=== PATIENT | female | born 1965 | race Caucasian/White ===

== ENCOUNTER 2019-08-28 13:27 | Outpatient (CLI) | payer OTHER, SELFPAY ==
--- NOTE | ~2019-08-28 | XR_ITS ---
EXAMINATION: XR abdomen/kub 1V EXAM DATE: 08/28/2019 13:48 INDICATION: Kidney stones. TECHNIQUE: Frontal projection of the upper abdomen, frontal projection lower abdomen/pelvis for inter pretation. Comparison is made to prior examination from 10/25/2017. FINDINGS: No suspicious soft tissue calcifications identified. There are cholecystectomy clips. Cho lecystectomy clips. There is also a clip in the right-sided pelvis. Expected amount of colonic stool, nonobstructive bowel gas pattern. There is no organomegaly. IMPRESSION: No suspicious calcifications identified. Reviewed, dictated and finalized at location A.
== END 2019-08-28 13:28 | disposition home or self-care (01) ==
PROVIDERS: PCP Family Medicine; Visit Provider Urology
DX: Z87.442 Personal history of urinary calculi (principal)
CPT/HCPCS: 74018

== ENCOUNTER → 2020-10-07 13:25 | Outpatient (CLI) | payer OTHER, SELFPAY ==
--- NOTE | ~2020-10-07 | MM_ITS ---
EXAMINATION: MM screening [place] BI w tigist HISTORY: Screening mammogram TECHNIQUE: Craniocaudal and mediolateral oblique 3-D tomosynthesis images were obtained and synthetic 2-D images were generated. CAD analysis was submitted and interpreted. COMPARISON: 02/26/2019 diagnostic right mammogram and limited right breast ultrasound 02/10/2019, 12/06/2017 bilateral digital screening mammogram examinations BREAST PARENCHYMAL COMPOSITION: There are scattered areas of fibroglandular density... FINDINGS: There is no evidence of suspicious mass, calcification, or architectural distortion to sugg est malignancy in either breast. There has been no suspicious interval change. IMPRESSION: 1. No mammographic evidence of malignancy. 2. Recommend routine screening mammography in one year. BI-RADS Category 1: Negative Reviewed, dictated and finalized at location A.
--- NOTE | ~2020-10-07 | DEXA_ITS ---
Bone Density Report Name: Hermelinda Britt Age: 55 Sex: Female Ethnicity: White Date of : 1965 Indication: postmenopausal; screening for osteoporosis; hysterectomy; Referring Provider: Miryam Asencio Study: Bone densitometry was performed. Exam Date: October 07, 2020 Accession number: [id number] Bone Density: Region BMD T-score Z-score Classification AP Spine (L1-L4) 0.844 -1.8 -0.8 Osteopenia Femoral Neck (Left) 0.709 -1.3 -0.2 Osteopenia Total Hip (Left) 0.893 -0.4 0.3 Normal Femoral Neck (Right) 0.718 -1.2 -0.2 Osteopenia Total Hip (Right) 0.901 -0.3 0.3 Normal Total Hip Mean 0.897 -0.4 0.3 Normal World Health Organization criteria for BMD impression classify patients as: Normal (T-score at or above -1.0), Osteopenia (T-score between -1.0 and -2.5), or Osteoporosis (T-score at or below -2.5). 10-year Fracture Risk(1): Major Osteoporotic Fracture 5.4% Hip Fracture 0.3% Reported Risk Factors: [place] (), Neck BMD=0.718, BMI=38.0 (1) FRAX(R) Version 3.08. Fracture probability calculated for an untreated patient. Fracture probability may be lower if the patient has received treatment. Clinical Information Provided by Patient: Has used the following medications: Vitamin D, MTV, Levothyroxine Has the following medical conditions: Hysterectomy Patient maximum height was 58.0 Menopause Age: 48 No regular weight bearing exercise Does not regularly consume dairy products Drinks caffeinated beverages Onset of menses at age 13 Number of children 2 Missed period for more than 6 months in a row Impression: The patient has low bone mass, based on the Total Spine T-score. The patient has an estimated ten-year risk of hip fracture of 0.3% and an estimated ten-year risk of major fracture of 5.4%, based on the WHO FRAX algorithm. Discussion: BONE DENSITY IS LOW AT ONE OR MORE SKELETAL SITES. This patient's lowest T-score is low at one or more skeletal sites. It meets the World Health Organization's (WHO) criteria for ?low bone mass? (T-score between -1.0 and -2.5). The patient's 10-year risk of fracture as calculated by FRAX is less than the threshold where pharmacological therapy is recommended by the National Osteoporosis Foundation (NOF). However, all treatment decisions require clinical judgment and consideration of individual patient factors, including patient preferences, comorbidities, previous drug use, risk factors not captured in the FRAX model (e.g., frailty, falls, vitamin D deficiency, increased bone turnover, interval significant decline in bone density) and possible under or overestimation of fracture risk by FRAX. The patient should follow a healthful lifestyle (good nutrition with adequate calcium and vitamin D, and appropriate weight-bearing exercise). Follow-Up: Consider re
== END ==
PROVIDERS: PCP Family Medicine; Visit Provider Family Medicine
DX: Z12.31 Encounter for screening mammogram for malignant neoplasm of breast (principal); Z78.0 Asymptomatic menopausal state; M85.88 Other specified disorders of bone density and structure, other site; M85.852 Other specified disorders of bone density and structure, left thigh; M85.851 Other specified disorders of bone density and structure, right thigh
CPT/HCPCS: 77063; 77067; 77080

== ENCOUNTER 2020-10-28 13:09 | Outpatient (CLI) | payer OTHER, SELFPAY ==
--- NOTE | ~2020-10-28 | XR_ITS ---
EXAMINATION: XR abdomen/kub 1V EXAM DATE: 10/28/2020 13:29 INDICATION: History kidney stones follow-up. TECHNIQUE: Frontal projection of the upper abdomen, frontal projection lower abdomen/pelvis for inter pretation. Comparison is made to prior examination from 08/28/2019. FINDINGS: Bowel gas is obscuring the renal contours. No suspicious soft tissue calcifications identi fied. There is moderate amount of colonic stool and gas. No small bowel obstruction. There are no o sseous abnormalities identified. Cholecystectomy clips. IMPRESSION: Unremarkable XR abdomen/kub 1V exam. Reviewed, dictated and finalized at location A.
== END 2020-10-28 13:10 | disposition home or self-care (01) ==
LOC: ANHIMG 13:13
PROVIDERS: PCP Family Medicine; Visit Provider Urology
DX: Z87.442 Personal history of urinary calculi (principal)
CPT/HCPCS: 74018

== ENCOUNTER 2021-06-24 08:31 | Emergency (ER) | payer OTHER, SELFPAY ==
[2021-06-24 08:41] VITALS: BP 135/77; PULSE 56; RESP 14; TEMP 36.2; O2SAT 100
--- NOTE | 2021-06-24 09:47 | ED.URI ---
HPI - URI/Sore Throat General Chief Complaint: Upper Respiratory Infection Stated Complaint: Sinus Pain Time Seen by Provider: 06/24/21 09:47 Source: patient and RN notes reviewed Mode of arrival: ambulatory Limitations: no limitations History of Present Illness HPI Narrative: 56-year-old female presented for complaint of sinus pressure, congestion, cough and for over 10 days. Denies malaise, body aches, fever or chills, chest pain, shortness of breath, wheezing. She is fully vaccinated and boosted for Covid and flu. She has taken DayQuil, NyQuil, Mucinex for symptoms without relief. Granddtr with runny nose. MD elicited complaint: cough Related Data Home Medications Medication Instructions Recorded Confirmed multivitamin 1 tablet PO DAILY 10/01/19 06/24/21 oxybutynin chloride 10 mg 10 mg PO BID tablet 10/01/19 06/24/21 tablet,extended release 24 hr Allergies Allergy/AdvReac Type Severity Reaction Status Date / Time No Known Allergies Allergy Verified 06/24/21 09:24 Review of Systems Review of Systems: CONSTITUTIONAL: Denies malaise, chills, sweats, fever EYES: Denies visual changes, redness, or discharge ENT: Endorses sinus pain,rhinorrhea, congestion, Denies otalgia, sore throat CARDIOVASCULAR: Denies chest pain, palpitations, edema RESPIRATORY: Reports cough, post nasal drainage. Denies dyspnea GASTROINTESTINAL: Denies abdominal pain, nausea, vomiting, diarrhea SKIN: Denies rash or itching MUSCULOSKELETAL: Denies myalgia NEUROLOGIC: Denies headache PMFSH Past Medical History Medical History History of hypertension Resolved after weight loss. History of kidney stones Hypothyroidism (acquired) Morbid obesity OAB (overactive bladder) Vitamin D deficiency Surgical History Surgical History History of cholecystectomy 03/2011 History of cystoscopy cystoscopy and left ureteroscopy - 04/03 History of gastric bypass 04/2017 History of hysterectomy 01/2014 Family History Family History Mother Patient's mother is , Onset Age: 34 Family history of malignant neoplasm of uterus Father COPD (chronic obstructive pulmonary disease) Social History Social History Smoking status: Never smoker Second hand tobacco smoke exposure: Yes Alcohol intake: never Substance use: never Substance use type: does not use Gender identity (if verbalized by the patient): Female Exam Narrative: GENERAL: Ill-appearing, nontoxic no acute distress. HEAD: Normocephalic EYES: PERRLA, conjunctivae clear ENT: Mucous membranes moist. TM pearly burton with dull light reflex bilaterally; no tragal tenderness. Oropharynx erythematous with PND, without lesions or exudate, no drooling, no hoarseness, no trismus, uvula midline. NECK: Supple. No lymphadenopathy CHEST: Clear to auscultation, breath sounds equal. No wheezing, rhonchi, rales, or stridor. No respiratory distress, speaks in full sentences. HEART: Regular rate and rhythm. No murmur heard. SKIN: Warm, dry, no rash. NEURO: Alert and oriented x3. PSYCH: Normal mood and affect Course Course Emergency Course: Patient is aware of diagnosis, understands and agrees to treatment plan. Anticipatory guidance given. Patient agrees to follow-up as directed and is aware of reasons to seek care at the emergency department. Portions of this record may have been created with voice recognition software Level of Care: Express Care Visit Vital Signs Vital signs: Vital Signs Temperature 97.2 F L 06/24/21 08:41 Pulse Rate 56 L 06/24/21 08:41 Respiratory Rate 14 06/24/21 08:41 Blood Pressure 135/77 06/24/21 08:41 Pulse Oximetry 100 06/24/21 08:41 Temperature 97.2 F L 06/24/21 08:41 Pulse Rate 56 L 06/24/21 08:41
== END 2021-06-24 10:00 | disposition home or self-care (01) ==
PROVIDERS: Emergency Provider Nurse Practitioner Family; PCP Family Medicine
DX: J01.90 Acute sinusitis, unspecified (principal); E03.9 Hypothyroidism, unspecified; E66.01 Morbid (severe) obesity due to excess calories; Z68.36 Body mass index [BMI] 36.0-36.9, adult
CPT/HCPCS: 99213; G0463

== ENCOUNTER 2021-10-20 13:14 | Outpatient (CLI) | payer OTHER, SELFPAY ==
--- NOTE | ~2021-10-20 | XR_ITS ---
XR abdomen/kub 1V DATE: 10/20/2021 13:36 INDICATION: History of kidney stones TECHNIQUE: AP projection, 2 views COMPARISON: 10/28/2020 KUB FINDINGS: Status post cholecystectomy. No obvious urinary tract calcifications are noted. Noncontrast CT abdomen pelvis would be more sensit manolo for detection of renal calculi. No evidence of bowel obstruction. Included skeletal structures appear unremarkable. IMPRESSION: Nonspecific abdomen Status post cholecystectomy Reviewed, dictated and finalized at Location A. Reviewed, dictated and finalized at location A.
== END 2021-10-20 13:15 | disposition home or self-care (01) ==
PROVIDERS: PCP Family Medicine; Visit Provider Urology
DX: Z87.442 Personal history of urinary calculi (principal); Z90.49 Acquired absence of other specified parts of digestive tract
CPT/HCPCS: 74018

== ENCOUNTER 2022-04-02 01:57 | Day surgery (SDC) | payer OTHER, SELFPAY ==
[2022-03-24 14:58] VITALS: BMI 38.2
[2022-04-02 13:09] VITALS: BP 147/98; PULSE 59; RESP 18; TEMP 36.3; O2SAT 99
--- NOTE | 2022-04-02 13:18 | PM.HPGS ---
History of Present Illness History of Present Illness Consent: Risks, benefits, and alternatives have been discussed and questions answered. Patient agrees to proceed with procedure. Chief complaint: neoplasm screening Narrative: Hermelinda Britt is a 57 year old female here for screening colonoscopy, last one 2011 Review of Systems Constitutional: Constitutional: Denies headache(s) and Denies weakness Eyes: Eyes: Denies blurry vision ENT: Reports Normal hearing present, Denies headache(s) and Denies neck pain Cardiovascular: Cardiovascular: Denies chest pain and Denies dyspnea Respiratory: Respiratory: Denies dyspnea Gastrointestinal: Gastrointestinal: Reports no additional gastrointestinal complaints Genitourinary: Genitourinary: Denies dysuria Musculoskeletal: Musculoskeletal: Denies neck pain Integumentary/Breasts: Skin/Breast: Denies dry skin Neurologic: Reports Normal hearing present, Denies headache(s) and Denies weakness Psychiatric: Psychiatric: Denies anxiety Endocrine: Endocrine: Denies change in body appearance Hematologic/Lymphatic: Hematologic/Lymphatic: Denies easy bleeding Allergic/Immunologic: Allergic/Immunologic: Denies urticaria PMFSH Past Medical History Medical History (Updated 04/02/22 @ 13:18 by Al Mahmood MD) Colon cancer screening History of hypertension Resolved after weight loss. History of kidney stones Hypothyroidism (acquired) Morbid obesity OAB (overactive bladder) Vitamin D deficiency Surgical History Surgical History History of cholecystectomy 03/2011 History of cystoscopy cystoscopy and left ureteroscopy - 04/03 History of gastric bypass 04/2017 History of hysterectomy 01/2014 Family History Family History Mother Patient's mother is , Onset Age: 34 Family history of malignant neoplasm of uterus Father COPD (chronic obstructive pulmonary disease) Social History Social History Smoking status: Never smoker Second hand tobacco smoke exposure: Yes Alcohol intake: never Substance use: never Substance use type: does not use Living arrangements: with family Gender identity (if verbalized by the patient): Female Spiritual care concerns: No Meds Home Medications and Allergies Home Medications Medication Instructions Recorded Confirmed Type multivitamin 1 tablet PO DAILY 10/01/19 04/02/22 History oxybutynin chloride 10 mg 10 mg PO BID 10/01/19 04/02/22 History tablet,extended release 24 hr levothyroxine 112 mcg tablet 112 mcg PO DAILY #90 tabs 12/28/21 04/02/22 Rx cholecalciferol (vitamin D3) 1,250 1,250 mcg PO WEEKLY #12 tabs 03/09/22 04/02/22 Rx mcg (50,000 unit) tablet Allergies Allergy/AdvReac Type Severity Reaction Status Date / Time No Known Allergies Allergy Verified 04/02/22 13:08 Vital Signs Vital Signs - 24 hr 04/02/22 13:09 Temperature 97.3 F L Pulse Rate 59 L Respiratory Rate 18 Blood Pressure 147/98 H Pulse Oximetry 99 Oxygen Delivery Room Air Exam Const: General: comfortable and no acute distress HENMT: Face/Nose/Sinus: Normal nares present Eyes: General: appearance normal, both eyes and all related structures Neck: Neck: no JVD Resp: Auscultation: clear to auscultation bilaterally Cardio: Rate: regular rate Rhythm: regular rhythm GI: Inspection: non-distended GI Palp: Yes Soft to palpation Skin: General skin exam: normal color Neuro: General: gait normal Speech: normal speech Extrem: General: normal to inspection Psych: Mental Status: mental status grossly normal Assessment and Plan Assessment and plan (1) Colon cancer screening: Code(s): Z12.11 - Encounter for screening for malignant neoplasm of colon Status: Acute Assessment and Plan: co
[2022-04-02] MEDS: LACTATED RINGERS 1,000 ML 150 ML IV CONT (13:20)
--- NOTE | 2022-04-02 13:24 | WPDANESEPPF ---
Anes - Initial Pre Proc Eval Procedure: Operation Date: 04/02/22 14:30 Proposed Procedures p Screening Colonoscopy - Al Mahmood MD Date/Time: 04/02/22 13:24 Surgeon: lA Mahmood MD Pre Op Diagnosis: neoplasm screening Patient Data Age: 57 Gender: F Height: 1.5 m Weight: 88.3 kg Last Vital Signs Temp 97.3 F L 04/02/22 13:09 Pulse 59 L 04/02/22 13:09 Resp 18 04/02/22 13:09 BP 147/98 H 04/02/22 13:09 Pulse Ox 99 04/02/22 13:09 O2 Del Method Room Air 04/02/22 13:09 Allergies Allergy/AdvReac Type Severity Reaction Status Date / Time No Known Allergies Allergy Verified 04/02/22 13:08 Home Medications Medication Instructions Recorded Confirmed Type multivitamin 1 tablet PO DAILY 10/01/19 04/02/22 History oxybutynin chloride 10 mg 10 mg PO BID 10/01/19 04/02/22 History tablet,extended release 24 hr levothyroxine 112 mcg tablet 112 mcg PO DAILY #90 tabs 12/28/21 04/02/22 Rx cholecalciferol (vitamin D3) 1,250 1,250 mcg PO WEEKLY #12 tabs 03/09/22 04/02/22 Rx mcg (50,000 unit) tablet Patient hx anesthesia problems: none Family hx anesthesia problems: none Results Review: All pre-operative results and documents have been reviewed as part of the pre-operative evaluation. [facility] Past Medical History Medical History (Updated 04/02/22 @ 13:18 by Al Mahmood MD) Colon cancer screening History of hypertension Resolved after weight loss. History of kidney stones Hypothyroidism (acquired) Morbid obesity OAB (overactive bladder) Vitamin D deficiency Surgical History Surgical History History of cholecystectomy 03/2011 History of cystoscopy cystoscopy and left ureteroscopy - 04/03 History of gastric bypass 04/2017 History of hysterectomy 01/2014 Family History Family History Mother Patient's mother is , Onset Age: 34 Family history of malignant neoplasm of uterus Father COPD (chronic obstructive pulmonary disease) Social History Social History Smoking status: Never smoker Second hand tobacco smoke exposure: Yes Alcohol intake: never Substance use: never Substance use type: does not use Living arrangements: with family Gender identity (if verbalized by the patient): Female Spiritual care concerns: No Anes - Eval Final PreProcedure Day of Procedure 04/02/22 13:24 Patient weight: morbidly obese Heart: regular rate and rhythm Lungs: clear to auscultation Airway: Mallampati scale class II Neurological: alert and oriented Last oral intake: >/= 8 hours ASA classification: III Emergent: no Anesthetic plan: proceed Anesthesia type and monitoring: general GIVS and standard monitoring Results Review: All pre-operative results and documents have been reviewed as part of the pre-operative evaluation. Informed Consent: The patient's anesthetic plan and its attendant risks and benefits were discussed with the patient/family/POA. Questions were solicited and answers provided to the satisfaction of the patient/family/POA.
[2022-04-02 13:48] VITALS: BP 101/75; PULSE 68; RESP 20; O2SAT 95
[2022-04-02 13:58] VITALS: BP 100/73; PULSE 64; RESP 28; O2SAT 97
[2022-04-02 14:08] VITALS: BP 107/78; PULSE 60; RESP 17; O2SAT 100
== END 2022-04-02 14:20 | disposition home or self-care (01) ==
PROVIDERS: PCP Family Medicine; Visit Provider Internal Medicine Gastroenterology
PROC: 0DJD8ZZ Inspection of Lower Intestinal Tract, Via Natural or Artificial Opening Endoscopic (ICD-10-PCS; CPT 45378; principal; 2022-04-02 14:30)
DX: Z12.11 Encounter for screening for malignant neoplasm of colon (principal); K57.30 Diverticulosis of large intestine without perforation or abscess without bleeding; E03.9 Hypothyroidism, unspecified; N32.81 Overactive bladder; E55.9 Vitamin D deficiency, unspecified; E66.01 Morbid (severe) obesity due to excess calories; Z68.39 Body mass index [BMI] 39.0-39.9, adult; Z98.84 Bariatric surgery status
CPT/HCPCS: 45378; J2704; J7120

== ENCOUNTER 2022-06-03 15:00 | Emergency (ER) | payer OTHER, SELFPAY ==
[2022-06-03 15:12] VITALS: BP 136/92; PULSE 61; RESP 20; TEMP 36.2; O2SAT 100
--- NOTE | 2022-06-03 15:45 | ED.BACK ---
HPI - Back Pain/Injury General Chief Complaint: Back Pain/Injury Stated Complaint: Sever lower back pain Source: patient and RN notes reviewed History of Present Illness HPI Narrative: 57-year-old female presents urgent care with complaints bilateral lower back pain x2 weeks. Patient states over the course of the last week her pain has increased. Patient reports polyuria but states this could be a chronic condition. Denies any dysuria, back injury, fevers, chills, leg pain, numbness, or tingling. Patient denies any abdominal pain or vomiting. Patient has been taking Tylenol home with minimal relief. Some parts of this dictation were generated by voice recognition software and may contain typographical and/or grammatical inaccuracies. Related Data Home Medications Medication Instructions Recorded Confirmed multivitamin 1 tablet PO DAILY 10/01/19 04/02/22 oxybutynin chloride 10 mg 10 mg PO BID 10/01/19 04/02/22 tablet,extended release 24 hr Allergies Allergy/AdvReac Type Severity Reaction Status Date / Time No Known Allergies Allergy Verified 06/03/22 15:09 Review of Systems Review of Systems: CONSTITUTIONAL: Denies fever, chills, or sweats. EYES: Denies visual changes, redness, or discharge. ENT: Denies otalgia and sore throat CARDIOVASCULAR: Denies chest pain, palpitations, or edema. RESPIRATORY: Denies cough or dyspnea. GASTROINTESTINAL: Denies abdominal pain, nausea, vomiting, or diarrhea. GENITOURINARY: Denies dysuria or hematuria. SKIN: Denies rash or itching. MUSCULOSKELETAL: Reports back pain NEUROLOGIC: Denies headache, numbness, or weakness. [facility] Past Medical History Medical History (Updated 06/03/22 @ 15:46 by Marianela Blackwood, ELIAZAR) Colon cancer screening History of hypertension Resolved after weight loss. History of kidney stones Hypothyroidism (acquired) Morbid obesity OAB (overactive bladder) Vitamin D deficiency Surgical History Surgical History History of cholecystectomy 03/2011 History of cystoscopy cystoscopy and left ureteroscopy - 04/03 History of gastric bypass 04/2017 History of hysterectomy 01/2014 Family History Family History Mother Patient's mother is , Onset Age: 34 Family history of malignant neoplasm of uterus Father COPD (chronic obstructive pulmonary disease) Social History Social History Smoking status: Never smoker Second hand tobacco smoke exposure: Yes Alcohol intake: never Substance use: never Substance use type: does not use Living arrangements: with family Gender identity (if verbalized by the patient): Female Spiritual care concerns: No Comments At the time of my signature, I reviewed and agree with the nursing past medical, surgical, social, and family history. There is no relevant family history pertinent to the patient complaint. Exam Narrative: GENERAL APPEARANCE: The patient is a well-developed, well-nourished child who is awake, active. Interacts appropriately with surroundings and examiner, in no acute distress. SKIN: Skin is warm and dry without erythema, swelling or exudate. There is good turgor. No tenting. HEAD: Atraumatic. Normocephalic. No temporal or scalp tenderness. EYES: Moist and bright. Sclera and conjunctivae normal. No discharge. PERRLA. Extraocular motions intact. Gross visual acuity intact. EARS: Pinna is normal shape and contour. Clear external auditory canals. TM pearly darling with good cone of light, no erythema or suppuration. No gross hearing deficit. NOSE: pink, moist mucosa with good air movement. No rhinorrhea or nasal flaring. Septum midline. Mouth: moist mucous membranes. THROAT; posterior pharynx pink and moist without erythema, exudate, or ulceration. Uvula midline. Normal movement of soft palate. NECK: Supple a
== END 2022-06-03 15:54 | disposition home or self-care (01) ==
PROVIDERS: Emergency Provider Nurse Practitioner Family; PCP Family Medicine
DX: N39.0 Urinary tract infection, site not specified (principal); B96.1 Klebsiella pneumoniae [K. pneumoniae] as the cause of diseases classified elsewhere; E03.9 Hypothyroidism, unspecified; E66.01 Morbid (severe) obesity due to excess calories; Z68.38 Body mass index [BMI] 38.0-38.9, adult
CPT/HCPCS: 81003; 87077; 87086; 87186; 99213; G0463

== ENCOUNTER 2023-06-24 11:12 | Outpatient (CLI) | payer OTHER, SELFPAY ==
--- NOTE | ~2023-06-24 | MM_ITS ---
EXAMINATION: MM screening [place] BI w tigist HISTORY: Screening mammogram TECHNIQUE: Craniocaudal and mediolateral oblique 3-D tomosynthesis images were obtained and synthetic 2-D images were generated. CAD analysis was submitted and interpreted. COMPARISON: 10/07/2020 bilateral screening mammogram BREAST PARENCHYMAL COMPOSITION: There are scattered areas of fibroglandular density. FINDINGS: There is no evidence of suspicious mass, calcification, or architectural distortion to sugg est malignancy in either breast. There has been no suspicious interval change. IMPRESSION: 1. No mammographic evidence of malignancy. 2. Recommend routine screening mammography in one year. BI-RADS Category 1: Negative Reviewed, dictated and finalized at location A. 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
== END 2023-06-24 11:13 ==
PROVIDERS: PCP Nurse Practitioner Obstetrics & Gynecology; Visit Provider Nurse Practitioner Obstetrics & Gynecology
DX: Z12.31 Encounter for screening mammogram for malignant neoplasm of breast (principal)
CPT/HCPCS: 77063; 77067

== ENCOUNTER 2023-09-22 09:10 | Emergency (ER) | payer OTHER, SELFPAY ==
[2023-09-22 09:25] VITALS: BP 126/94; PULSE 84; RESP 20; TEMP 36.4; O2SAT 98
--- NOTE | 2023-09-22 10:06 | ED.FEMALEGU ---
HPI - Female Genitourinary General Chief complaint: Urogenital-Female Stated complaint: Poss Uti Source: patient and RN notes reviewed Mode of arrival: ambulatory Limitations: no limitations History of Present Illness HPI Narrative: 58-year-old female presented for complaint of burning with urination, urgency and fever. Onset at noon yesterday. Denies hematuria, nausea, vomiting, abdominal pain, flank pain, constipation, diarrhea, fevers or chills. Reports history of renal stones. She takes oxybutynin and follows with Dr Montemayor. Related Data Home Medications Medication Instructions Recorded Confirmed cholecalciferol (vitamin D3) 1,250 1,250 mcg PO WEEKLY 09/22/23 09/22/23 mcg (50,000 unit) capsule levothyroxine 112 mcg tablet 112 mcg PO DAILY 09/22/23 09/22/23 oxybutynin chloride 10 mg 20 mg PO DAILY 09/22/23 09/22/23 tablet,extended release 24 hr phentermine 30 mg capsule 30 mg PO DAILY 09/22/23 09/22/23 Allergies Allergy/AdvReac Type Severity Reaction Status Date / Time No Known Allergies Allergy Verified 09/22/23 09:54 Review of Systems Review of Systems: CONSTITUTIONAL: Denies body aches, fever, chills, or sweats. CARDIOVASCULAR: Denies chest pain, palpitations, or edema. RESPIRATORY: Denies cough or dyspnea. GASTROINTESTINAL: Denies abdominal pain, nausea, vomiting, or diarrhea. GENITOURINARY: Reports dysuria, frequency, urgency, denies hematuria, flank pain SKIN: Denies rash, itching, or wounds. MUSCULOSKELETAL: Denies back pain or myalgia. PMFSH Comments At time of signature, I have reviewed and agree with nursing past medical, surgical, social and family history unless otherwise noted. Please see nursing chart for further information. There is no relevant family history pertinent to the presenting complaint Exam Narrative: GENERAL: Well-appearing and in no acute distress. ENT: Mucous membranes pink and moist. NECK: Normal AROM. Supple. CHEST: No respiratory distress. Clear to auscultation. HEART: Regular rate and rhythm. ABDOMEN: Soft, nontender, nondistended, normal active bowel sounds. No CVA tenderness MUSCULOSKELETAL: No bony tenderness. SKIN: Warm, dry, no rash. NEURO: No focal deficits. Alert and oriented x3. Gait steady. PSYCH: Normal affect. Course Course Emergency Course: Patient is aware of diagnosis, understands and agrees to treatment plan. Anticipatory guidance given. Patient agrees to follow-up as directed and is aware of reasons to seek care at the emergency department. Portions of this record may have been created with voice recognition software Level of Care: Express Care Visit Vital Signs Vital signs: Vital Signs Temperature 97.6 F 09/22/23 09:25 Pulse Rate 84 09/22/23 09:25 Respiratory Rate 20 09/22/23 09:25 Blood Pressure 126/94 H 09/22/23 09:25 Pulse Oximetry 98 09/22/23 09:25 Oxygen Delivery Room Air 09/22/23 09:25 Temperature 97.6 F 09/22/23 09:25 Pulse Rate 84 09/22/23 09:25 Respiratory Rate 20 09/22/23 09:25 Blood Pressure 126/94 H 09/22/23 09:25 Pulse Oximetry 98 09/22/23 09:25 Oxygen Delivery Room Air 09/22/23 09:25 Reviewed MDM - Female Genitourinary MDM Narrative Medical decision making narrative: Discussed physical exam findings and urine results. Advised supportive measures and signs/symptoms to go to the ER. Pt is appropriate for outpt treatment and f/u with urology Discharge Plan Discharge Clinical Impression: Urinary tract infection Patient Disposition: Home, Self-Care Condition: Stable Instructions: Antibiotic Form, Urinary Tract Infection in Women (ED) Additional Instructions: Take the antibiotic as prescribed The urine will be sent of for a culture to identify what type of bacteria is causing your infection. If the culture shows that the antibiotic will not get rid of your infection, you will be notified and a new antibiotic will be called in for you.
== END 2023-09-22 10:45 | disposition home or self-care (01) ==
PROVIDERS: Emergency Provider Nurse Practitioner Family; PCP Family Medicine
DX: N39.0 Urinary tract infection, site not specified (principal); B96.20 Unspecified Escherichia coli [E. coli] as the cause of diseases classified elsewhere; E03.9 Hypothyroidism, unspecified
CPT/HCPCS: 81003; 87077; 87086; 87088; 87186; 99213; G0463

== ENCOUNTER 2023-10-15 08:52 | Emergency (ER) | payer OTHER, SELFPAY ==
[2023-10-15] VITALS (10 sets, daily range): BP systolic 115–139; BP diastolic 88–92; PULSE 92–102; RESP 15–28; TEMP 37.4–38.8; O2SAT 96–100
--- NOTE | ~2023-10-15 | XR_ITS ---
EXAMINATION: XR chest 2V DATE: 10/15/2023 09:18 INDICATION: Chest pain and congestion. Nonproductive cough and fever. TECHNIQUE: PA and lateral views of the chest were obtained. COMPARISON: Chest radiograph dated 04/15/11 FINDINGS: A couple calcified nodule right middle lobe and additional small calcified nodule at the lateral left upper lung zone consistent with old granulomatous disease. Linear bands of discoid atelectasis/scarr ing in the right lower lobe and lingula. No other airspace opacities, pulmonary edema, pleural effusi on or pneumothorax. The cardiomediastinal silhouette is normal. Cholecystectomy clips in right upper quadrant. Mild thoracic spondylosis. IMPRESSION: 1. Mild discoid atelectasis at the bilateral lung bases. No other acute cardiopulmonary disease. Reviewed, dictated and finalized at location A. IMPRESSION: 1. Mild discoid atelectasis at the bilateral lung bases. No other acute cardiop ulmonary disease.
--- NOTE | 2023-10-15 08:55 | ECG_ITS ---
Test Date: 2023-10-15 08:59:19 Measurements Intervals [place] Rate: 94 P: 17 [place]: 113 QRS: -5 QRSD: 94 T: -9 QT: 317 QTc: 398 Interpretive Statements SINUS RHYTHM WITH SHORT [place] INTERVAL INCOMPLETE RIGHT BUNDLE BRANCH BLOCK [90+ ms QRS DURATION, TERMINAL R IN V1/V2, 40+ ms S IN I/aVL/V4/V5/V6] MODERATE ST DEPRESSION [0.05+ mV ST DEPRESSION] No previous ECG available for comparison Electronically Signed On 10-15-2023 11:29:43 CDT by Ken Leon M.D.
--- NOTE | 2023-10-15 09:03 | ED.CHESTPAIN ---
HPI - Chest Pain General Chief Complaint: Chest Pain Stated Complaint: chest pain, urinary symptoms Time Seen by Provider: 10/15/23 08:53 History of Present Illness HPI narrative: 58-year-old female presented to the emergency department for evaluation for 2 weeks of cough with some shortness of breath and a fever. Patient states she began having respiratory symptoms approximately 2 weeks ago. Patient also reports but 2 weeks ago she was treated for urinary tract infection but states she is still having some urinary symptoms. Patient lives at home with her Related Data Home Medications Medication Instructions Recorded Confirmed multivitamin 1 tablet PO DAILY 10/01/19 05/10/23 oxybutynin chloride 10 mg 10 mg PO BID 10/01/19 05/10/23 tablet,extended release 24 hr Allergies Allergy/AdvReac Type Severity Reaction Status Date / Time No Known Allergies Allergy Verified 10/15/23 09:00 Review of Systems Review of Systems: All systems reviewed & are unremarkable except as noted in HPI and below PMFSH Past Medical History Medical History Colon cancer screening History of hypertension Resolved after weight loss. History of kidney stones Hypothyroidism (acquired) Morbid obesity OAB (overactive bladder) Vitamin D deficiency Surgical History Surgical History History of cholecystectomy 03/2011 History of cystoscopy cystoscopy and left ureteroscopy - 04/03 History of gastric bypass 04/2017 History of hysterectomy 01/2014 Family History Family History Mother Patient's mother is , Onset Age: 34 Family history of malignant neoplasm of uterus Father COPD (chronic obstructive pulmonary disease) Social History Social History Social History: Caffeine- tea occasionally Smoking status: Never smoker Second hand tobacco smoke exposure: Yes Alcohol intake: never Substance use: never Substance use type: does not use Lack of Transportation: No Lack of Food: Never True Current Housing: I Have Housing Concerned About Future Housing: No Difficulty Paying Gas/Electric Bills: No Difficulty Paying for Meds: No Currently Unemployed: No Education: Associate Degree Difficulty w/ Childcare or Family Care: No Living arrangements: with family Occupation/Education: occupation Gender identity (if verbalized by the patient): Female Spiritual care concerns: No Agree to blood products: Yes Exam Narrative: APPEARANCE: Ill-appearing HEAD: normocephalic, atraumatic. EYES: PERRLA/EOMI, conjunctivae clear. NOSE: Normal no drainage EARS:TMS clear with good light reflex. THROAT: Pharynx clear, no exudate. NECK: Supple. No adenopathy, no masses. RESPIRATORY: Airway patent, respirations nonlabored. Clear to auscultation bilaterally, no rales, rhonchi, wheezing. CARDIOVASCULAR: Regular rate and rhythm without murmurs rubs or gallops. ABDOMINAL: Soft, nontender, nondistended, normal bowel sounds MUSCULOSKELETAL: Moves all extremities. Strength/ROM intact, No edema, No calf tenderness. NEURO: Alert. Cranial nerves II through XII intact. Grossly intact Course Vital Signs Vital signs: Vital Signs Temperature 101.8 F H 10/15/23 08:56 Pulse Rate 97 10/15/23 08:56 Respiratory Rate 18 10/15/23 08:56 Blood Pressure 134/92 H 10/15/23 08:56 Pulse Oximetry 100 10/15/23 08:56 Oxygen Delivery Room Air 10/15/23 08:56 Temperature 99.4 F 10/15/23 10:19 Pulse Rate 98 10/15/23 11:07 Respiratory Rate 20 10/15/23 11:07 Blood Pressure 115/88 10/15/23 11:07 Pulse Oximetry 97 10/15/23 11:07 Oxygen Delivery Room Air 10/15/23 08:56 MDM - Chest Pain MDM Narrative Medical decision making narrative: 58-year-old
[2023-10-15] MEDS: ASPIRIN 81 MG CHEWABLE TABLET 324 MG PO (09:05)
[2023-10-15 09:14] LABS: Basophils Percent Auto 0.3 % (0.2-1.2); Hematocrit 42.4 % (37.0-47.0); Hemoglobin 14.2 g/dL (12.0-15.0); Immature Granulocyte Absolute 0.03 K/mm3 (0.00-0.031); Immature Granulocyte Percent A 0.3 % (0-0.5); Lymphocytes Absolute Auto 0.81 K/mm3 (0.9-3.2); Lymphocytes Percent Auto 8.1 % (18.3-44.2); Mean Corpuscular HGB Conc 33.5 g/dl (32-36); Mean Corpuscular Hemoglobin 29.8 pg (26-34); Mean Corpuscular Volume 88.9 fl (80-100); Mean Platelet Volume 9.8 fl (7.4-10.4); Monocytes Absolute Auto 0.8 K/mm3 (0.1-0.6); Monocytes Percent Auto 7.8 % (2.6-8.5); Neutrophils Absolute Auto 8.3 K/mm3 (1.3-6.7); Neutrophils Percent Auto 83.5 % (45.5-73.1); Platelet Count Result 206 k/mm3 (150-375); Red Blood Count 4.77 M/mm3 (4.2-5.4); Red Cell Distribution Width 13.2 % (11.5-14.5); White Blood Count 9.9 K/mm3 (4.5-10.0)
[2023-10-15 09:24] LABS: Alanine Aminotransferase 16 U/L (6-35); Albumin Level 4.2 g/dL (3.5-5.1); Alkaline Phosphatase 93 U/L (38-126); Anion Gap 9 mmol/L (4-12); Aspartate Amino Transferase 34 U/L (14-36); Bilirubin,Total 1.1 mg/dL (0.2-1.3); Blood Urea Nitrogen 8 mg/dL (7-17); Calcium 8.8 mg/dL (8.4-10.2); Carbon Dioxide 23 mmol/L (22-30); Chloride 100 mmol/L (98-107); Estimated Glomerular Filt Rate > 60; Glucose 133 mg/dL (65-110); Lipase 33 U/L (23-300); Potassium 3.7 mmol/L (3.4-5.0); Sodium 132 mmol/L (137-145)
[2023-10-15 09:26] LABS: INR 1.3; Prothrombin Time 16.4 Seconds (11.1-14.7)
[2023-10-15 09:27] LABS: Partial Thromboplastin Time 32.2 Seconds (22.3-36.8)
[2023-10-15 09:35] LABS: Troponin I < 0.012 ng/mL (0.000-0.034)
[2023-10-15 10:19] LABS: Influenza A QL RT-PCR Negative (Negative); Influenza B QL RT-PCR Negative (Negative); RSV RNA, RT-PCR Negative (Negative); SARS-CoV-2 RNA PCR Negative (Negative)
[2023-10-15 10:45] LABS: Appearance Urine Cloudy (Clear); Bacteria Urine 4+ /hpf; Bilirubin Urine Negative (Negative); Blood Urine Trace (Negative); Color Urine Yellow (Yellow); Glucose Urine UA Negative (Negative); Ketones Urine 3+ mg/dL (Negative); Leukocyte Esterase Ur 2+ LEU/UL (Negative); Nitrate Urine Positive (Negative); Non Pathogenic Casts 0-2; Protein Urine 1+ mg/dL (Negative); Specific Grav Ur 1.014 (1.001-1.035); Squamous Epithelial Cell Urine None Seen /hpf (Few); WBC Urine >100 /hpf (0-3)
[2023-10-15 10:55] LABS: Add Urine Microscopic? YES
== END 2023-10-15 11:37 | disposition home or self-care (01) ==
PROVIDERS: Emergency Provider Emergency Medicine; PCP Family Medicine
DX: J18.9 Pneumonia, unspecified organism (principal); N39.0 Urinary tract infection, site not specified; Z20.822 Contact with and (suspected) exposure to COVID-19; Z87.442 Personal history of urinary calculi; E03.9 Hypothyroidism, unspecified
CPT/HCPCS: 36415; 71046; 80053; 81001; 83690; 84484; 85025; 85610; 85730; 87040; 87077; 87086; 87088; 87186; 87637; 93005; 96365; 99284; A9270; J0696

== ENCOUNTER 2023-10-16 15:59 | Inpatient (IN) | payer OTHER, SELFPAY ==
[2023-10-16] VITALS (10 sets, daily range): BP systolic 132–150; BP diastolic 76–92; PULSE 74–86; RESP 14–24; TEMP 36.7–38.1; O2SAT 95–100; BMI 38.1
--- NOTE | ~2023-10-16 | CT_ITS ---
CT chest abdomen pelvis wo con Ordering provider: Lenora Leger APRN History: . Cough, abdominal pain . Comparison: None. Technique: CT chest without IV contrast. CT abdomen and pelvis without oral and IV contrast. Radiatio n reduction technique utilized. DLP is 966.04 mGy. FINDINGS: The study is limited due to lack of IV contrast. CHEST: --VISUALIZED THORACIC INLET: Normal as visualized. --MEDIASTINUM: Aorta/coronary arteries: Mild atheromatous disease. Heart/other: The heart is not enlarged. Lymph nodes: No mediastinal or hilar adenopathy. Small prevascular lymph nodes are noted. Calcified subcarinal lymph node. --LUNGS: Atelectatic changes in the right lung base posteriorly. No pulmonary nodules or masses. No i nfiltrates or effusions. No pneumothorax. Multiple calcified granulomas.0 --MUSCULOSKELETAL: Soft tissues: The superficial soft tissues are normal. Bones: Age appropriate degenerative changes of the spine. ABDOMEN/PELVIS: --MUSCULOSKELETAL: Bones: Normal spine. Superficial soft tissues: The superficial soft tissues are normal. --UPPER ABDOMINAL ORGANS: Liver: Normal. Gallbladder: Status post cholecystectomy. Spleen: Normal. Stomach/duodenum: Sliding hiatus hernia. Postoperative changes in the stomach. Pancreas: Normal. Adrenals: Normal. Kidneys: Minimal fullness of the left renal pelvis. --PELVIC ORGANS: The bladder is normal. No bladder stones. --BOWEL AND MESENTERY: Colon: No evidence of diverticulitis. Narrowing of the sigmoid area seen most likely spastic. Follow- up advised. Normal appendix. Small Bowel: Normal. No obstruction. Peritoneum/mesentery: No free air or free fluid. No mesenteric lymphadenopathy. Small lymph nodes see n in the mesentery with the largest measuring 1 cm. --RETROPERITONEUM: Mild atheromatous disease of the abdominal aorta. No retroperitoneal lymphadenop athy. IMPRESSION: CHEST: 1. Minimal atelectatic changes in the right lung base posteriorly. No definite pneumonia or masses s een. ABDOMEN/PELVIS: 1. Slight dilatation of the left renal pelvis. No definite stones seen. 2. Focal area of narrowing in the sigmoid colon most likely spastic. Clinical evaluation and follow- up advised. 3. Small sliding hiatus hernia. Reviewed, dictated and finalized at location A. IMPRESSION: CHEST: 1. Minimal atelectatic changes in the right lung base posteriorly. No definite pneumonia or masses seen. ABDOMEN/PELVIS: 1. Slight dilatation of the left renal pelvis. No definite stones seen. 2. Focal area of narrowing in the sigmoid colon most likely spastic. Clinical evaluation and follow-up advised. 3. Small sliding hiatus hernia.
--- NOTE | ~2023-10-16 | XR_ITS ---
EXAMINATION: XR chest 1V portable DATE: 10/16/2023 16:41 INDICATION: Cough. Fever. TECHNIQUE: A single frontal view of the chest was obtained. COMPARISON: Chest 2 views 10/15/2023 FINDINGS: There is mild atelectasis in the lower lung zones. No pleural effusion or pneumothorax. The heart size is normal. Calcified right hilar lymph nodes are consistent with old granulomatous diseas e. IMPRESSION: 1. Mild atelectasis in the lower lung zones. Reviewed, dictated and finalized at location E.
--- NOTE | 2023-10-16 16:25 | ED.GENADULT ---
HPI - General Adult General Chief complaint: Recheck/Abnormal Lab/Rx Stated complaint: positive blood cx Time Seen by Provider: 10/16/23 16:01 History of Present Illness HPI narrative: 58-year-old female present to the emergency department for evaluation for positive blood cultures. Patient was evaluated in emergency department yesterday and diagnosed with pneumonia and urinary tract infection. Patient was started on cefpodoxime and azithromycin. Anticipated disposition for the patient yesterday was admission but patient ultimately stated that she felt improved and was requesting discharge home. Blood cultures had already been ordered and were not canceled. Patient got a call from her primary care physician today that both blood cultures had returned positive. Patient presents to the emergency department for evaluation. Patient states that she does still have some tiredness but does feel improved compared to yesterday. Related Data Home Medications Medication Instructions Recorded Confirmed oxybutynin chloride 10 mg 10 mg PO BID 10/01/19 10/16/23 tablet,extended release 24 hr Allergies Allergy/AdvReac Type Severity Reaction Status Date / Time No Known Allergies Allergy Verified 10/15/23 09:00 Review of Systems Review of Systems: All systems reviewed & are unremarkable except as noted in HPI and below PMFSH Past Medical History Medical History Colon cancer screening History of hypertension Resolved after weight loss. History of kidney stones Hypothyroidism (acquired) Morbid obesity OAB (overactive bladder) Vitamin D deficiency Surgical History Surgical History History of cholecystectomy 03/2011 History of cystoscopy cystoscopy and left ureteroscopy - 04/03 History of gastric bypass 04/2017 History of hysterectomy 01/2014 Family History Family History Mother Patient's mother is , Onset Age: 34 Family history of malignant neoplasm of uterus Father COPD (chronic obstructive pulmonary disease) Social History Social History Social History: Caffeine- tea occasionally Smoking status: Never smoker Second hand tobacco smoke exposure: Yes Alcohol intake: never Substance use: never Substance use type: does not use Do You Feel Safe in your Home?: Yes Lack of Transportation: No Lack of Food: Never True Current Housing: I Have Housing Concerned About Future Housing: No Difficulty Paying Gas/Electric Bills: No Difficulty Paying for Meds: No Currently Unemployed: No Education: Associate Degree Difficulty w/ Childcare or Family Care: No Living arrangements: with family Occupation/Education: occupation Gender identity (if verbalized by the patient): Female Spiritual care concerns: No Agree to blood products: Yes Exam Narrative: APPEARANCE: Well appearing, no pain, no distress, well-nourished. HEAD: normocephalic, atraumatic. EYES: PERRLA/EOMI, conjunctivae clear. NOSE: Normal no drainage EARS:TMS clear with good light reflex. THROAT: Pharynx clear, no exudate. NECK: Supple. No adenopathy, no masses. RESPIRATORY: Airway patent, respirations nonlabored. Clear to auscultation bilaterally, no rales, rhonchi, wheezing. CARDIOVASCULAR: Regular rate and rhythm without murmurs rubs or gallops. ABDOMINAL: Soft, nontender, nondistended, normal bowel sounds MUSCULOSKELETAL: Moves all extremities. Strength/ROM intact, No edema, No calf tenderness. NEURO: Alert. Cranial nerves II through XII intact. Grossly intact SKIN: Warm, dry. Normal Color Course Course Emergency Course: Blood cultures were repeated, patient was started on Rocephin IV and patient was admitted to the hospitalist. Vital Signs Vital signs: Vital Signs
[2023-10-16 16:41] LABS: Basophils Percent Auto 0.4 % (0.2-1.2); Eosinophils Absolute Auto 0.1 K/mm3 (0-0.3); Eosinophils Percent Auto 0.8 % (0-4.4); Hematocrit 40.8 % (37.0-47.0); Hemoglobin 13.7 g/dL (12.0-15.0); Immature Granulocyte Absolute 0.02 K/mm3 (0.00-0.031); Immature Granulocyte Percent A 0.2 % (0-0.5); Lymphocytes Percent Auto 14.3 % (18.3-44.2); Mean Corpuscular HGB Conc 33.6 g/dl (32-36); Mean Corpuscular Hemoglobin 30.1 pg (26-34); Mean Corpuscular Volume 89.7 fl (80-100); Mean Platelet Volume 9.9 fl (7.4-10.4); Monocytes Absolute Auto 0.8 K/mm3 (0.1-0.6); Neutrophils Absolute Auto 6.2 K/mm3 (1.3-6.7); Neutrophils Percent Auto 74.3 % (45.5-73.1); Platelet Count Result 185 k/mm3 (150-375); Red Blood Count 4.55 M/mm3 (4.2-5.4); Red Cell Distribution Width 13.2 % (11.5-14.5); White Blood Count 8.4 K/mm3 (4.5-10.0)
[2023-10-16] MEDS: cefTRIAXone 2 GM/NS 100 ML 2 GM/100 ML BAG IVPB (16:43)
[2023-10-16 16:54] LABS: Alanine Aminotransferase 16 U/L (6-35); Albumin Level 4.1 g/dL (3.5-5.1); Alkaline Phosphatase 83 U/L (38-126); Anion Gap 5 mmol/L (4-12); Aspartate Amino Transferase 24 U/L (14-36); Bilirubin,Total 0.7 mg/dL (0.2-1.3); Blood Urea Nitrogen 11 mg/dL (7-17); Calcium 8.8 mg/dL (8.4-10.2); Carbon Dioxide 29 mmol/L (22-30); Chloride 102 mmol/L (98-107); Estimated Glomerular Filt Rate 57; Glucose 105 mg/dL (65-110); Potassium 3.7 mmol/L (3.4-5.0); Sodium 136 mmol/L (137-145)
--- NOTE | 2023-10-16 17:39 | PM.IMHP ---
H&P: HPI History of Present Illness Date/Time: 10/16/23 21:45 Chief Complaint: Positive blood cultures. Narrative: This is a 58-year-old female with history of kidney stones, urinary tract infections, stress urinary incontinence, and hypothyroidism who presented to the emergency department for evaluation after she was found to have positive blood cultures. The patient provides the following history. She was seen in the emergency department yesterday morning with a 2 week history of shortness of breath, fever, and nonproductive cough. She also mentions continued urinary symptoms despite being treated for a UTI several weeks ago. Urinalysis at that time was still concerning for active UTI and she was given a prescription for cefpodoxime as well as azithromycin to cover UTI and possible developing pneumonia. Blood cultures drawn yesterday are now growing Gram-negative bacilli in both 2 sets of blood cultures. She continues to feel poorly. Fever has been as high as 103? F. appetite has been poor. She denies headache, sinus congestion, sore throat, chest pain, pleuritic pain, abdominal pain, vomiting, and diarrhea. In the ED: She was afebrile on arrival with stable vital signs. Labs were significant for a WBC count of 8.4, hemoglobin 13.7, sodium 136, BUN 11, creatinine 1.00. Chest x-ray showed mild atelectasis in lower lung zones. She was given ceftriaxone 2 g and is being admitted in this setting for further treatment. Review of Systems Review of Systems: 12 systems were reviewed and are negative except for as per HPI. [facility] Past Medical History Medical History (Updated 10/17/23 @ 00:10 by Natalee Parker PA-C) History of hypertension Resolved after weight loss. History of kidney stones Hypothyroidism (acquired) Overactive bladder Vitamin D deficiency Surgical History Surgical History (Updated 10/17/23 @ 00:10 by Natalee Parker PA-C) History of cholecystectomy (03/2011) History of cystoscopy (03/2017) Cystoscopy and left ureteroscopy. History of endometrial ablation History of gastric bypass (04/2017) History of hysterectomy (01/2014) History of laparoscopic adjustable gastric banding With subsequent removal. History of tubal ligation Family History Family History Mother Patient's mother is , Onset Age: 34 Family history of malignant neoplasm of uterus Father COPD (chronic obstructive pulmonary disease) Social History Social History (Updated 10/17/23 @ 00:11 by Natalee Parker PA-C) Social History: Surrogate medical decision maker: Destinee Lugo, daughter. Code status: Full code. Smoking status: Never smoker Second hand tobacco smoke exposure: Yes Alcohol intake: never Substance use: never Substance use type: does not use Do You Feel Safe in your Home?: Yes Lack of Transportation: No Lack of Food: Never True Current Housing: I Have Housing Concerned About Future Housing: No Difficulty Paying Gas/Electric Bills: No Difficulty Paying for Meds: No Currently Unemployed: No Education: Associate Degree Difficulty w/ Childcare or Family Care: No Living arrangements: with family Occupation/Education: occupation Spiritual care concerns: No Agree to blood products: Yes Meds Home Medications and Allergies Home Medications Medication Instructions Recorded Confirmed Type oxybutynin chloride 10 mg 10 mg PO BID 10/01/19 10/16/23 History tablet,extended release 24 hr levothyroxine 112 mcg tablet 112 mcg PO DAILY #90 tabs 06/01/23 10/16/23 Rx azithromycin 250 mg tablet See Rx Instructions PO .COMPLEX #6 10/15/23 10/16/23 Rx tabs cefpodoxime 200 mg tablet 200 mg PO BID 5 days #10 tabs 10/15/23 10/16/23 Rx ondansetron 4 mg disintegrating 4 mg PO Q8H PRN nausea and 10/15/23 10/16/23 Rx tablet vomiting #14 tabs Allergies Allergy/AdvReac Type Severity Reaction Status Date / Time No
--- NOTE | 2023-10-16 18:09 | PC.NURSE ---
This patient, Hermelinda Britt, was admitted to Medical Room 257-01. Patient/family oriented to hospital policies and general routines including ID bracelet, bed and alarms, visiting hours, pain management, procedures, bathroom and other care routines, personal items, smoking policy, room service/diet, and visiting hours. Information on how to activate the Rapid Response Team has been discussed. Patient/Family are encouraged to report perceived risks to care and to ask questions if they do not understand what they are told or what they should do.
[2023-10-16] MEDS: ACETAMINOPHEN 325 MG TABLET 650 MG PO (22:25)
[2023-10-16] MEDS: SODIUM CHLORIDE 0.9% IV 1,000 ML 100 ML IV CONT (22:30)
[2023-10-17 06:00] VITALS: BP 109/67; PULSE 78; RESP 16; TEMP 36.7; O2SAT 99
[2023-10-17 06:26] LABS: Hematocrit 35.3 % (37.0-47.0); Hemoglobin 12.1 g/dL (12.0-15.0); Mean Corpuscular HGB Conc 34.3 g/dl (32-36); Mean Corpuscular Hemoglobin 30.1 pg (26-34); Mean Corpuscular Volume 87.8 fl (80-100); Mean Platelet Volume 10.2 fl (7.4-10.4); Platelet Count Result 164 k/mm3 (150-375); Red Blood Count 4.02 M/mm3 (4.2-5.4); Red Cell Distribution Width 13.3 % (11.5-14.5); White Blood Count 6.3 K/mm3 (4.5-10.0)
[2023-10-17 06:39] LABS: Anion Gap 6 mmol/L (4-12); Blood Urea Nitrogen 9 mg/dL (7-17); Calcium 8.2 mg/dL (8.4-10.2); Carbon Dioxide 25 mmol/L (22-30); Chloride 104 mmol/L (98-107); Estimated Glomerular Filt Rate > 60; Glucose 86 mg/dL (65-110); Magnesium 2.1 mg/dL (1.6-2.3); Potassium 3.3 mmol/L (3.4-5.0); Sodium 135 mmol/L (137-145)
[2023-10-17] MEDS: LEVOTHYROXINE SODIUM 112 MCG TABLET PO (06:58)
--- NOTE | 2023-10-17 07:57 | PM.IMPN ---
Progress Note: A&P Assessment and Plan (1) Gram-negative bacteremia: Code(s): R78.81 - Bacteremia Status: Acute Assessment and Plan: Blood cultures from - growing Gram-negative bacilli. Urine culture and blood cultures growing E coli. White count 6.3, lactic acid 1.0 T-max 100.5? Tylenol for fever greater than 101 Patient started on Rocephin 2 g IV fluids NS at 100 mL/hour Strict I&O Bladder scan as needed Will need repeat blood cultures 24 hours after initiation of antibiotics Sensitivity pending CT chest abdomen and pelvis ordered given abdominal pain, nausea, and persistent cough for the last month (2) Urinary tract infection: Code(s): N39.0 - Urinary tract infection, site not specified Status: Acute Assessment and Plan: See above (3) Hypothyroidism (acquired): Code(s): E03.9 - Hypothyroidism, unspecified Status: Acute Assessment and Plan: Stable. Resume home Synthroid (4) Overactive bladder: Code(s): N32.81 - Overactive bladder Status: Acute Assessment and Plan: Resume home oxybutynin Plan Feeding: Regular diet Analgesia: Tylenol Thromboembolic prophylaxis: Lovenox Lines: PIV Antibiotics: Rocephin 2 g Disposition: Home when blood cultures are negative Advance Care Plan I have confirmed that the patient's Advanced Care Plan is present, code status is documented, or surrogate decision maker is listed in patient medical record.: Yes Medication Reconciliation I have utilized all available resources to obtain, update and review the patients current medications (includes all prescriptions, OTC, herbals, cannabis, and nutritional supplements).: Yes Subjective Date/time seen: 10/17/23 07:57 Interval history: This is a 58-year-old female with history of kidney stones, urinary tract infections, stress urinary incontinence, and hypothyroidism who presented to the emergency department for evaluation after she was found to have positive blood cultures. She was seen the day before in the ED with complaints of shortness of breath, fever, and nonproductive cough for approximately 2 weeks. 10/16: Resting in bed with her daughter at the bedside. She is not appear in acute distress. She is curious about what the plan is. She reports having a the last month is nonproductive and worsen with deep breathing. On 09/22 she presented to an urgent care because she felt like she had a urinary tract infection. She reported pain in her back strong urine odor. She was given an antibiotic and sent home. She then reported to our emergency room on 10/14 surgery assistant complaints of, shortness of breath, and fever. She also had complaints of recurrent urinary symptoms including abdominal pain and foul-smelling urine. She reports having fevers at home as high as 103. She has also had headache, dizziness, and poor appetite with nausea. Currently on exam she appears comfortable in bed. She states she does feel dry. I discussed with her and her daughter the plan of care. No questions at this time. Review of Systems Review of Systems: 12 systems were reviewed and are negative except for as per HPI. All systems reviewed & are unremarkable except as noted in HPI and below Exam Narrative: General: well appearing, appears stated age. HEENT: normocephalic, atraumatic. Mucous membranes moist. EOMI, PERRLA, bilateral sclera anicteric, no conjunctival injection. Neck supple without JVD, lymphadenopathy, or bruit. Respiratory: clear and diminished auscultation bilaterally. No rales/rhonic/wheezes. Teeth absent. Cardiovascular: Regular rate and rhythm, normal S1-S2 upon auscultation. No murmurs, rubs, or clicks. PMI is nondisplaced, capillary refill less than 3 second. Abdomen: Soft, round, no pulsatile masses, nondistended and nontender. No rebound, no guarding. No CVA tenderness, no hepatosplenomegaly. Bowel sounds present to all four quadrants. N
[2023-10-17] MEDS: ENOXAPARIN 40 MG/0.4 ML SYRINGE SUB-Q (08:06)
[2023-10-17] MEDS: PHENAZOPYRIDINE HCL 100 MG TABLET 200 MG PO ×3 (08:20→16:59)
[2023-10-17] MEDS: POTASSIUM CHLORIDE 20 MEQ ER TABLET 40 MEQ PO (08:21)
--- NOTE | 2023-10-17 11:16 | PC.NURSE ---
Patient in the bathroom when I entered the room for morning assessment. She ambulated without difficulty while managing the IV pole. Patient cooperative. Questions and concerns were addressed. Patient had no complaints of pain. Trio round with MD late morning.
[2023-10-17 11:35] VITALS: O2SAT 95
[2023-10-17] MEDS: SODIUM CHLORIDE 0.9% IV 1,000 ML 100 ML IV CONT (12:55)
[2023-10-17 14:00] VITALS: BP 114/64; PULSE 78; RESP 16; TEMP 36.7; O2SAT 99
[2023-10-17] MEDS: cefTRIAXone 2 GM/NS 100 ML 2 GM/100 ML BAG IVPB (16:59)
[2023-10-17 19:19] VITALS: BP 105/58; PULSE 78; RESP 18; TEMP 36.5; O2SAT 97
[2023-10-18] MEDS: SODIUM CHLORIDE 0.9% IV 1,000 ML 100 ML IV CONT (00:44)
[2023-10-18 04:50] VITALS: BP 114/71; PULSE 76; RESP 20; TEMP 37; O2SAT 99
[2023-10-18 05:46] LABS: Basophils Percent Auto 0.7 % (0.2-1.2); Eosinophils Absolute Auto 0.2 K/mm3 (0-0.3); Eosinophils Percent Auto 4.1 % (0-4.4); Hematocrit 33.6 % (37.0-47.0); Hemoglobin 11.4 g/dL (12.0-15.0); Immature Granulocyte Absolute 0.01 K/mm3 (0.00-0.031); Immature Granulocyte Percent A 0.2 % (0-0.5); Lymphocytes Absolute Auto 1.14 K/mm3 (0.9-3.2); Lymphocytes Percent Auto 27.6 % (18.3-44.2); Mean Corpuscular HGB Conc 33.9 g/dl (32-36); Mean Corpuscular Hemoglobin 30.1 pg (26-34); Mean Corpuscular Volume 88.7 fl (80-100); Mean Platelet Volume 10.3 fl (7.4-10.4); Monocytes Absolute Auto 0.4 K/mm3 (0.1-0.6); Monocytes Percent Auto 10.7 % (2.6-8.5); Neutrophils Absolute Auto 2.3 K/mm3 (1.3-6.7); Neutrophils Percent Auto 56.7 % (45.5-73.1); Platelet Count Result 183 k/mm3 (150-375); Red Blood Count 3.79 M/mm3 (4.2-5.4); Red Cell Distribution Width 13.4 % (11.5-14.5); White Blood Count 4.1 K/mm3 (4.5-10.0)
[2023-10-18] MEDS: LEVOTHYROXINE SODIUM 112 MCG TABLET PO (05:52)
[2023-10-18 05:56] LABS: Alanine Aminotransferase 11 U/L (6-35); Alkaline Phosphatase 65 U/L (38-126); Anion Gap 3 mmol/L (4-12); Aspartate Amino Transferase 20 U/L (14-36); Bilirubin,Total 0.3 mg/dL (0.2-1.3); Blood Urea Nitrogen 7 mg/dL (7-17); Carbon Dioxide 23 mmol/L (22-30); Chloride 110 mmol/L (98-107); Estimated Glomerular Filt Rate > 60; Glucose 89 mg/dL (65-110); Magnesium 2.2 mg/dL (1.6-2.3); Potassium 3.6 mmol/L (3.4-5.0); Sodium 136 mmol/L (137-145)
[2023-10-18] MEDS: ACETAMINOPHEN 325 MG TABLET 650 MG PO ×2 (06:03→20:57)
[2023-10-18] MEDS: ENOXAPARIN 40 MG/0.4 ML SYRINGE SUB-Q (07:59)
[2023-10-18] MEDS: PHENAZOPYRIDINE HCL 100 MG TABLET 200 MG PO ×3 (07:59→16:32)
[2023-10-18 08:00] VITALS: O2SAT 94
--- NOTE | 2023-10-18 08:38 | PM.IMPN ---
Progress Note: A&P Assessment and Plan (1) Gram-negative bacteremia: Code(s): R78.81 - Bacteremia Status: Acute Assessment and Plan: Blood cultures from 6- growing Gram-negative bacilli. Urine culture and blood cultures growing E coli. White count 6.3, lactic acid 1.0 T-max 100.5? Tylenol for fever greater than 101 Patient started on Rocephin 2 g IV fluids NS at 100 mL/hour Strict I&O Bladder scan as needed Will need repeat blood cultures 24 hours after initiation of antibiotics Sensitivity pending CT chest abdomen and pelvis ordered given abdominal pain, nausea, and persistent cough for the last month 10/17: No change to plan of care. Urine culture with ecoli sensitive to Rocephin/Augmentin. Will plan to send home on Augmentin. First repeat blood cultures with NGTD. These cultures were drawn in the ED prior to IV Rocephin 2 grams. Will discuss case with ID pharmacist to see if we should wait for preliminary read on cultures 24 hours post IV antibiotics. (2) Urinary tract infection: Code(s): N39.0 - Urinary tract infection, site not specified Status: Acute Assessment and Plan: See above (3) Hypothyroidism (acquired): Code(s): E03.9 - Hypothyroidism, unspecified Status: Acute Assessment and Plan: Stable. Resume home Synthroid (4) Overactive bladder: Code(s): N32.81 - Overactive bladder Status: Acute Assessment and Plan: Resume home oxybutynin Plan Feeding: Regular diet Analgesia: Tylenol Thromboembolic prophylaxis: Lovenox Lines: PIV Antibiotics: Rocephin 2 g Disposition: Home when blood cultures are negative Advance Care Plan I have confirmed that the patient's Advanced Care Plan is present, code status is documented, or surrogate decision maker is listed in patient medical record.: Yes Medication Reconciliation I have utilized all available resources to obtain, update and review the patients current medications (includes all prescriptions, OTC, herbals, cannabis, and nutritional supplements).: Yes Subjective Date/time seen: 10/18/23 08:38 Interval history: This is a 58-year-old female with history of kidney stones, urinary tract infections, stress urinary incontinence, and hypothyroidism who presented to the emergency department for evaluation after she was found to have positive blood cultures. She was seen the day before in the ED with complaints of shortness of breath, fever, and nonproductive cough for approximately 2 weeks. 10/16: Resting in bed with her daughter at the bedside. She is not appear in acute distress. She is curious about what the plan is. She reports having a the last month is nonproductive and worsen with deep breathing. On 09/22 she presented to an urgent care because she felt like she had a urinary tract infection. She reported pain in her back strong urine odor. She was given an antibiotic and sent home. 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 She also had complaints of recurrent urinary symptoms including abdominal pain and foul-smelling urine. She reports having fevers at home as high as 103. She has also had headache, dizziness, and poor appetite with nausea. Currently on exam she appears comfortable in bed. She states she does feel dry. I discussed with her and her daughter the plan of care. No questions at this time. 10/17: Resting in bed in no acute distress. She is feeling better today than when she 1st presented. She is eating and drinking more and does not feel dry today. We discussed that her initial blood cultures are negative however she had not been on IV antibiotic therapy for 24 hours at the time of their collection. I would prefer to wait until tomorrow to ensure cultures are negative. Patient is in agreement with this plan. Review of Systems Review of Systems: All systems reviewed & are unremarkable exce
[2023-10-18] MEDS: oxyBUTYnin CHLORIDE XL 5 MG TAB.ER.24 10 MG PO ×2 (11:15→16:32)
[2023-10-18 14:00] VITALS: BP 109/57; PULSE 76; RESP 14; TEMP 36.7; O2SAT 96
[2023-10-18] MEDS: cefTRIAXone 2 GM/NS 100 ML 2 GM/100 ML BAG IVPB (16:32)
[2023-10-18 19:50] VITALS: BP 113/60; PULSE 87; RESP 17; TEMP 36.7; O2SAT 96
[2023-10-19 05:04] VITALS: BP 119/75; PULSE 69; RESP 18; TEMP 36.8; O2SAT 95
[2023-10-19 05:11] LABS: Eosinophils Absolute Auto 0.3 K/mm3 (0-0.3); Eosinophils Percent Auto 7.4 % (0-4.4); Hematocrit 37.1 % (37.0-47.0); Hemoglobin 12.1 g/dL (12.0-15.0); Immature Granulocyte Absolute 0.02 K/mm3 (0.00-0.031); Immature Granulocyte Percent A 0.5 % (0-0.5); Lymphocytes Absolute Auto 1.37 K/mm3 (0.9-3.2); Lymphocytes Percent Auto 34.9 % (18.3-44.2); Mean Corpuscular HGB Conc 32.6 g/dl (32-36); Mean Corpuscular Hemoglobin 29.4 pg (26-34); Mean Platelet Volume 9.9 fl (7.4-10.4); Monocytes Absolute Auto 0.4 K/mm3 (0.1-0.6); Monocytes Percent Auto 8.9 % (2.6-8.5); Neutrophils Absolute Auto 1.9 K/mm3 (1.3-6.7); Neutrophils Percent Auto 47.3 % (45.5-73.1); Platelet Count Result 201 k/mm3 (150-375); Red Blood Count 4.12 M/mm3 (4.2-5.4); Red Cell Distribution Width 13.3 % (11.5-14.5); White Blood Count 3.9 K/mm3 (4.5-10.0)
[2023-10-19 05:21] LABS: Alanine Aminotransferase 11 U/L (6-35); Albumin Level 3.2 g/dL (3.5-5.1); Alkaline Phosphatase 65 U/L (38-126); Anion Gap 2 mmol/L (4-12); Aspartate Amino Transferase 19 U/L (14-36); Bilirubin,Total 0.4 mg/dL (0.2-1.3); Blood Urea Nitrogen 7 mg/dL (7-17); Calcium 8.3 mg/dL (8.4-10.2); Carbon Dioxide 28 mmol/L (22-30); Chloride 111 mmol/L (98-107); Estimated Glomerular Filt Rate > 60; Glucose 86 mg/dL (65-110); Magnesium 2.3 mg/dL (1.6-2.3); Sodium 141 mmol/L (137-145)
[2023-10-19] MEDS: LEVOTHYROXINE SODIUM 112 MCG TABLET PO (05:48)
[2023-10-19] MEDS: oxyBUTYnin CHLORIDE XL 5 MG TAB.ER.24 10 MG PO (08:06)
[2023-10-19] MEDS: PHENAZOPYRIDINE HCL 100 MG TABLET 200 MG PO ×2 (08:06→12:09)
[2023-10-19] MEDS: ENOXAPARIN 40 MG/0.4 ML SYRINGE SUB-Q (08:06)
--- NOTE | 2023-10-19 08:27 | PM.DS ---
DS: Admitting Diagnosis Discharge Date 10/18 Admitting Diagnosis uti DS: Discharge Diagnosis Discharge Diagnosis (1) Gram-negative bacteremia: Code(s): R78.81 - Bacteremia Status: Acute Assessment and Plan: Blood cultures from 10-14 growing Gram-negative bacilli. Urine culture and blood cultures growing E coli. White count 6.3, lactic acid 1.0 T-max 100.5? Tylenol for fever greater than 101 Patient started on Rocephin 2 g IV fluids NS at 100 mL/hour Strict I&O Bladder scan as needed Will need repeat blood cultures 24 hours after initiation of antibiotics Sensitivity pending CT chest abdomen and pelvis ordered given abdominal pain, nausea, and persistent cough for the last month 10/17: No change to plan of care. Urine culture with ecoli sensitive to Rocephin/Augmentin. Will plan to send home on Augmentin. First repeat blood cultures with NGTD. These cultures were drawn in the ED prior to IV Rocephin 2 grams. Will discuss case with ID pharmacist to see if we should wait for preliminary read on cultures 24 hours post IV antibiotics. 10/18- repeat blood cultures- negative- ok to discharge home. Discussed with pharm ID-will send home on oral antibiotics (2) Urinary tract infection: Code(s): N39.0 - Urinary tract infection, site not specified Status: Acute Assessment and Plan: See above (3) Hypothyroidism (acquired): Code(s): E03.9 - Hypothyroidism, unspecified Status: Acute Assessment and Plan: Stable. Resume home Synthroid (4) Overactive bladder: Code(s): N32.81 - Overactive bladder Status: Acute Assessment and Plan: Resume home oxybutynin Plan final dx: uti, bacteremia Feeding: Regular diet Analgesia: Tylenol Thromboembolic prophylaxis: Lovenox Lines: PIV Antibiotics: Rocephin 2 g Disposition: Home when blood cultures are negative DS: Summary Hospital Course Hospital Course: Interval history: This is a 58-year-old female with history of kidney stones, urinary tract infections, stress urinary incontinence, and hypothyroidism who presented to the emergency department for evaluation after she was found to have positive blood cultures. She was seen the day before in the ED with complaints of shortness of breath, fever, and nonproductive cough for approximately 2 weeks. 10/16: Resting in bed with her daughter at the bedside. She is not appear in acute distress. She is curious about what the plan is. She reports having a the last month is nonproductive and worsen with deep breathing. On 09/22 she presented to an urgent care because she felt like she had a urinary tract infection. She reported pain in her back strong urine odor. She was given an antibiotic and sent home. 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 She also had complaints of recurrent urinary symptoms including abdominal pain and foul-smelling urine. She reports having fevers at home as high as 103. She has also had headache, dizziness, and poor appetite with nausea. Currently on exam she appears comfortable in bed. She states she does feel dry. I discussed with her and her daughter the plan of care. No questions at this time. 10/17: Resting in bed in no acute distress. She is feeling better today than when she 1st presented. She is eating and drinking more and does not feel dry today. We discussed that her initial blood cultures are negative however she had not been on IV antibiotic therapy for 24 hours at the time of their collection. I would prefer to wait until tomorrow to ensure cultures are negative. Patient is in agreement with this plan. Status at Discharge Functional status at discharge: independent ambulation Overall status at discharge: patient is back to baseline Time Spent with Patient Time attestation: Total time spent providing and/or coordinating discharge services: Time spent
[2023-10-19] MEDS: ACETAMINOPHEN 325 MG TABLET 650 MG PO (09:48)
== END 2023-10-19 12:56 | disposition home or self-care (01) | DRG 690 ==
LOC: ANHED 16:28 → ANH2MED 17:47
PROVIDERS: Nurse Practitioner Acute Care; Physician Assistant; Admitting Provider General Practice; Emergency Provider Emergency Medicine; PCP Family Medicine; Visit Provider Nurse Practitioner
DX: N39.0 Urinary tract infection, site not specified (principal); R78.81 Bacteremia; B96.20 Unspecified Escherichia coli [E. coli] as the cause of diseases classified elsewhere; E66.01 Morbid (severe) obesity due to excess calories; E55.9 Vitamin D deficiency, unspecified; E03.9 Hypothyroidism, unspecified; N32.81 Overactive bladder; I10 Essential (primary) hypertension; N39.3 Stress incontinence (female) (male); Z68.38 Body mass index [BMI] 38.0-38.9, adult; Z90.710 Acquired absence of both cervix and uterus; Z90.49 Acquired absence of other specified parts of digestive tract; Z98.84 Bariatric surgery status; Z87.442 Personal history of urinary calculi
CPT/HCPCS: 36415; 71045; 71250; 74176; 80048; 80053; 83605; 83735; 85025; 85027; 87040; 96365; 99285; A9270; J0696; J1650; J7030

== ENCOUNTER 2024-03-22 18:34 | Emergency (ER) | payer OTHER, SELFPAY ==
[2024-03-22 19:20] VITALS: BP 126/80; PULSE 96; RESP 16; TEMP 36.9; O2SAT 98
[2024-03-22 22:56] LABS: Add Urine Microscopic? YES; Appearance Urine Cloudy (Clear); Bacteria Urine 4+ /hpf; Bilirubin Urine Negative (Negative); Blood Urine 2+ (Negative); Color Urine Yellow (Yellow); Glucose Urine UA Negative (Negative); Ketones Urine 1+ mg/dL (Negative); Leukocyte Esterase Ur 2+ LEU/UL (Negative); Nitrate Urine Positive (Negative); Non Pathogenic Casts 0-2; Protein Urine 2+ mg/dL (Negative); Specific Grav Ur 1.016 (1.001-1.035); Squamous Epithelial Cell Urine None Seen /hpf (Few); WBC Urine 51-100 /hpf (0-3); pH Urine 5.5 (5.0-9.0)
--- NOTE | 2024-03-22 23:35 | ED_ITS ---
HPI - Fever General Chief Complaint: Fever Stated Complaint: fever, urinary frequency Time Seen by Provider: 03/22/24 23:21 Source: patient Mode of arrival: ambulatory Limitations: no limitations History of Present Illness HPI Narrative: This is a 59-year-old female, with history of UTI and sepsis approximately 6 months ago, who presents to the emergency department with malaise, nausea, fever, increased urinary frequency and dysuria for the past day. The patient denies any known sick contacts or recent travel. She denies abdominal pain, vomiting, bleeding, shortness of breath or loss of consciousness. She states she has been able tolerate fluids without difficulty. she has no other complaints at this time. Related Data Home Medications Medication Instructions Recorded Confirmed oxybutynin chloride 10 mg 20 mg PO DAILY 09/22/23 03/19/24 tablet,extended release 24 hr cholecalciferol (vitamin D3) 50 50 mcg PO DAILY 03/19/24 03/19/24 mcg (2,000 unit) capsule mecobalamin (vitamin B12) 1,000 1,000 mcg PO DAILY 03/22/24 mcg chewable tablet Allergies Allergy/AdvReac Type Severity Reaction Status Date / Time No Known Allergies Allergy Verified 03/19/24 09:03 Review of Systems Review of Systems: All systems reviewed & are unremarkable except as noted in HPI and below PMFSH Past Medical History Medical History Gram-negative bacteremia (~09/2023) History of hypertension Resolved after weight loss. History of kidney stones Hypothyroidism (acquired) Overactive bladder Vitamin D deficiency Surgical History Surgical History History of cholecystectomy (03/2011) History of cystoscopy (03/2017) Cystoscopy and left ureteroscopy. History of endometrial ablation History of gastric bypass (04/2017) History of hysterectomy (01/2014) History of laparoscopic adjustable gastric banding With subsequent removal. History of tubal ligation Family History Family History Mother Patient's mother is , Onset Age: 34 Family history of malignant neoplasm of uterus Father COPD (chronic obstructive pulmonary disease) Social History Social History Social History: Surrogate medical decision maker: Destinee Lugo, daughter. Code status: Full code. Smoking status: Never smoker Second hand tobacco smoke exposure: Yes Alcohol intake: never Substance use: never Substance use type: does not use Do You Feel Safe in your Home?: Yes Lack of Transportation: No Lack of Food: Never True Current Housing: I Have Housing Concerned About Future Housing: No Difficulty Paying Gas/Electric Bills: No Difficulty Paying for Meds: No Currently Unemployed: No Education: Associate Degree Difficulty w/ Childcare or Family Care: No Living arrangements: with family Occupation/Education: occupation Spiritual care concerns: No Agree to blood products: Yes Exam Narrative: GENERAL: Well-developed, well-nourished, and in no acute distress. HEAD: Normocephalic, atraumatic. EYES: PERRLA and EOMI. CHEST: Clear to auscultation. No respiratory distress. No wheezes rales or rhonchi HEART: Regular rate and rhythm. No murmur heard. Normal peripheral pulses. ABDOMEN: Soft, nontender, nondistended, normal active bowel sounds. mild right CVA tenderness to palpation, no left CVA tenderness EXTREMITIES: Normal range of motion. No edema. SKIN: Warm, dry, no rash. NEURO: Alert and oriented x3. No focal deficit. Moving all 4 limbs spontaneously PSYCH: Normal mood and affect. 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 The patient's abdominal exam is benign. Her vital signs are reassuring. I suspect pyelonephritis. Review of the patient's most recent urine culture ( in October 2023) demonstrated Enterococcus faecalis sensitive to Macrobid, penicillins, levofloxacin and vancomycin. Will give a 1st dose of oral 3rd generation cephalosporin here and discharged with same as well as nausea medications. I advised the patient to follow-up with her primary care follow-up. I discussed the findings and recommendations with the patient. Discussed return and emergency precautions including signs/symptoms of acute abdomen and intractable vomiting. The patient voiced understanding and agreement with the plan. All questions answered to her satisfaction. Vital Signs Vital signs: Vital Signs Temperature 98.5 F 03/22/24 19:20 Pulse Rate 96 03/22/24 19:20 Respiratory Rate 16 03/22/24 19:20 Blood Pressure 126/80 03/22/24 19:20 Pulse Oximetry 98 12/05/24 19:20 Oxygen Delivery Room Air 03/22/24 19:20 Temperature 98.5 F 03/22/24 23:40 Pulse Rate 77 03/22/24 23:40 Respiratory Rate 16 03/22/24 19:20 Blood Pressure 136/85 03/22/24 23:40 Pulse Oximetry 99 03/22/24 23:40 Oxygen Delivery Room Air 03/22/24 19:20 MDM - Fever MDM Narrative Medical decision making narrative: plan: Labs, oral antibiotics, antiemetics, primary care follow-up Differential Diagnosis Differential diagnosis: Likely pyelonephritis and other ( UTI, other) Lab Data Labs: Lab Results 03/22/24 Range/Units 22:44 Urine Color Yellow (Yellow) Urine Appearance Cloudy H (Clear) Urine pH 5.5 (5.0-9.0) Ur Specific [place] 1.016 (1.001-1.035) Urine Protein 2+ H (Negative) mg/dL Urine Glucose (UA) Negative (Negative) mg/dL Urine Ketones 1+ H (Negative) mg/dL Ur Blood (Man) 2+ H (Negative) Urine Nitrate Positive H (Negative) Urine Bilirubin Negative (Negative) Urine Urobilinogen 1.0 (<2.0) mg/dL Leukocyte Esterase Rfl 2+ H (Negative) RICHARDSON/UL Urine RBC 11-20 H (0-2) /hpf Urine WBC 51-100 H (0-3) /hpf Ur Squamous Epith Cells None seen (Few) /hpf Urine Bacteria 4+ /hpf Urine Casts 0-2 Discharge Plan Discharge Clinical Impression: Pyelonephritis, Acute abdominal pain in right flank, Dysuria Patient Disposition: Home, Self-Care Condition: Stable Instructions: Antibiotic Form Additional Instructions: You were seen in the emergency department. urinalysis shows changes consistent with a urinary tract infection. Your exam and vital signs are very reassuring. I recommend a course of oral antibiotics, nausea medications and follow-up with your primary care doctor. If you develop severe abdominal pain, abdominal pain with fevers, persistent vomiting, or if you have other emergent concerns for life, limb, or eyesight, return to the emergency department. Patient Language: Syriac Prescriptions: New cefpodoxime 200 mg tablet 200 mg PO Q12H 14 Days Qty: 28 0RF Rx Instructions: must administer with a meal/food ondansetron 4 mg tablet,disintegrating 4 mg PO Q8H PRN (Reason: nausea and vomiting) Qty: 12 0RF No Action oxybutynin chloride 10 mg tablet extended release 24hr 20 mg PO DAILY cholecalciferol (vitamin D3) 50 mcg (2,000 unit) capsule 50 mcg PO DAILY levothyroxine 112 mcg tablet 112 mcg PO DAILY Qty: 90 1RF cholecalciferol (vitamin D3) 1,250 mcg (50,000 unit) tablet 1,250 mcg PO WEEKLY Qty: 12 1RF mecobalamin (vitamin B12) 1,000 mcg tablet,chewable 1,000 mcg PO DAILY Follow-up/Referrals: Miryam Asencio MD [Primary Care Provider] - 1 Week Time of Disposition: 23:37
[2024-03-22 23:40] VITALS: BP 136/85; PULSE 77; TEMP 36.9; O2SAT 99
[2024-03-23] MEDS: CEFDINIR 300 MG CAPSULE PO (00:08)
== END 2024-03-23 00:12 | disposition home or self-care (01) ==
LOC: ANHED 23:55
PROVIDERS: Emergency Provider Preventive Medicine Aerospace Medicine; PCP Family Medicine
DX: N12 Tubulo-interstitial nephritis, not specified as acute or chronic (principal); E03.9 Hypothyroidism, unspecified; Z87.442 Personal history of urinary calculi; E55.9 Vitamin D deficiency, unspecified; N32.81 Overactive bladder; Z90.49 Acquired absence of other specified parts of digestive tract; Z98.84 Bariatric surgery status; Z90.710 Acquired absence of both cervix and uterus
CPT/HCPCS: 81001; 87077; 87086; 87186; 99283; A9270

== ENCOUNTER 2024-03-25 14:13 | Emergency (ER) | payer OTHER, SELFPAY ==
--- NOTE | ~2024-03-25 | XR_ITS ---
XR chest 1V portable DATE: 03/25/2024 18:21 INDICATION: Weakness TECHNIQUE: Portable upright AP chest on 03/25/2024 at 1819 hours COMPARISON: 10/17/2023 CT chest abdomen 10/16/2023 portable AP chest FINDINGS: Normal heart size. No hilar or mediastinal enlargement. No pulmonary infiltrate or consolidation, pleural effusion or pulmonary vascular congestion or pneumo thorax is detected. Surgical clips, right upper quadrant, consistent with cholecystectomy. IMPRESSION: No active cardiopulmonary disease Reviewed, dictated and finalized at location A. O RIGGER
[2024-03-25 14:18] VITALS: BP 133/88; PULSE 87; RESP 16; TEMP 36.4; O2SAT 99
--- NOTE | 2024-03-25 17:05 | PC.NURSE ---
pt keeps voicing concerns she is septic due to previous diagnosis of sepsis
[2024-03-25 17:15] VITALS: BP 137/86; PULSE 81; RESP 16; O2SAT 100
[2024-03-25 17:22] LABS: Basophils Percent Auto 0.5 % (0.2-1.2); Eosinophils Absolute Auto 0.1 K/mm3 (0-0.3); Eosinophils Percent Auto 2.1 % (0-4.4); Hematocrit 39.4 % (37.0-47.0); Hemoglobin 12.8 g/dL (12.0-15.0); Immature Granulocyte Absolute 0.02 K/mm3 (0.00-0.031); Immature Granulocyte Percent A 0.3 % (0-0.5); Lymphocytes Absolute Auto 1.73 K/mm3 (0.9-3.2); Mean Corpuscular HGB Conc 32.5 g/dl (32-36); Mean Corpuscular Hemoglobin 28.8 pg (26-34); Mean Corpuscular Volume 88.5 fl (80-100); Mean Platelet Volume 9.8 fl (7.4-10.4); Monocytes Absolute Auto 0.5 K/mm3 (0.1-0.6); Monocytes Percent Auto 8.8 % (2.6-8.5); Neutrophils Absolute Auto 3.4 K/mm3 (1.3-6.7); Neutrophils Percent Auto 58.3 % (45.5-73.1); Platelet Count Result 225 k/mm3 (150-375); Red Blood Count 4.45 M/mm3 (4.2-5.4); Red Cell Distribution Width 14.4 % (11.5-14.5); White Blood Count 5.8 K/mm3 (4.5-10.0)
[2024-03-25 17:37] LABS: Lactic Acid Reflex 0.6 mmol/L (0.7-2.0)
[2024-03-25 17:38] LABS: Alanine Aminotransferase 15 U/L (6-35); Alkaline Phosphatase 81 U/L (38-126); Anion Gap 7 mmol/L (4-12); Aspartate Amino Transferase 27 U/L (14-36); Bilirubin,Total 0.6 mg/dL (0.2-1.3); Blood Urea Nitrogen 16 mg/dL (7-17); Carbon Dioxide 27 mmol/L (22-30); Chloride 104 mmol/L (98-107); Estimated Glomerular Filt Rate > 60; Glucose 92 mg/dL (65-110); Potassium 4.1 mmol/L (3.4-5.0); Sodium 138 mmol/L (137-145)
[2024-03-25 17:45] LABS: Add Urine Microscopic? YES; Appearance Urine Cloudy (Clear); Bacteria Urine None Seen /hpf; Bilirubin Urine Negative (Negative); Blood Urine Negative (Negative); Calcium Oxalate Crystals Urine Present /hpf; Color Urine Yellow (Yellow); Glucose Urine UA Negative (Negative); Ketones Urine Negative (Negative); Leukocyte Esterase Ur Negative LEU/UL (Negative); Need Manual Microscopic Reviewed; Nitrate Urine Negative (Negative); Non Pathogenic Casts 0-2; Protein Urine Trace mg/dL (Negative); RBC Urine 0-2 /hpf (0-2); Specific Grav Ur 1.023 (1.001-1.035); Squamous Epithelial Cell Urine Occasional /hpf (Few); WBC Urine 0-5 /hpf (0-3); pH Urine 5.5 (5.0-9.0)
--- NOTE | 2024-03-25 17:49 | ED_ITS ---
HPI - Female Genitourinary General Chief complaint: Urogenital-Female Stated complaint: getting treated for UTI and still has fever Time Seen by Provider: 03/25/24 17:31 Source: patient Mode of arrival: ambulatory Limitations: no limitations History of Present Illness HPI Narrative: 59 YEARS OLD WHITE FEMALE DROVE HERSELF TO THE EMERGENCY ROOM COMPLAINING OF URINARY TRACT INFECTION SYMPTOMS INCLUDE FREQUENCY, BURNING URINATION, URGENCY WHICH STARTED 4 DAYS AGO, PATIENT ALSO IS TELLING ME THAT SHE BEEN RUNNING F EVER, LAST TYLENOL INTAKE WAS 7 HOURS AGO, CURRENTLY PATIENT HAVE NO FEVER, ALSO COMPLAINING OF FEELING HEADACHE. PATIENT DENIES ANY VAGINAL BLEEDING, DISCHARGE OR RASH OR ANYTHING UNUSUAL AT THE GENITAL AREA. PATIENT WORKS [employer]. PATIENT WAS SEEN IN OUR EMERGENCY ROOM 5 DAYS AGO, DIAGNOSIS OF URINARY TRACT INFECTION, WAS DISCHARGED ON CEFPODOXIME. TWO HUNDRED TWICE A DAY, 14 DAYS HISTORY OF OVER ACTIVE BLADDER Related Data Home Medications Medication Instructions Recorded Confirmed oxybutynin chloride 10 mg 20 mg PO DAILY 09/22/23 03/19/24 tablet,extended release 24 hr cholecalciferol (vitamin D3) 50 50 mcg PO DAILY 03/19/24 03/19/24 mcg (2,000 unit) capsule mecobalamin (vitamin B12) 1,000 1,000 mcg PO DAILY 03/22/24 mcg chewable tablet Allergies Allergy/AdvReac Type Severity Reaction Status Date / Time No Known Allergies Allergy Verified 03/25/24 14:15 Review of Systems Review of Systems: All systems reviewed & are unremarkable except as noted in HPI and below PMFSH Past Medical History Medical History Gram-negative bacteremia (~09/2023) History of hypertension Resolved after weight loss. History of kidney stones Hypothyroidism (acquired) Overactive bladder Vitamin D deficiency Surgical History Surgical History History of cholecystectomy (03/2011) History of cystoscopy (03/2017) Cystoscopy and left ureteroscopy. History of endometrial ablation History of gastric bypass (04/2017) History of hysterectomy (01/2014) History of laparoscopic adjustable gastric banding With subsequent removal. History of tubal ligation Family History Family History Mother Patient's mother is , Onset Age: 34 Family history of malignant neoplasm of uterus Father COPD (chronic obstructive pulmonary disease) Social History Social History Social History: Surrogate medical decision maker: Destinee Lugo, daughter. Code status: Full code. Smoking status: Never smoker Second hand tobacco smoke exposure: Yes Alcohol intake: never Substance use: never Substance use type: does not use Do You Feel Safe in your Home?: Yes Lack of Transportation: No Lack of Food: Never True Current Housing: I Have Housing Concerned About Future Housing: No Difficulty Paying Gas/Electric Bills: No Difficulty Paying for Meds: No Currently Unemployed: No Education: Associate Degree Difficulty w/ Childcare or Family Care: No Living arrangements: with family Occupation/Education: occupation Spiritual care concerns: No Agree to blood products: Yes Exam Narrative: GENERAL APPEARANCE: WELL-DEVELOPED, WELL-NOURISHED SKIN: NORMAL COLOR HEAD: NORMOCEPHALIC, NONTRAUMATIC EYES: CLEAR CONJUNCTIVA ENT: OROPHARYNX NORMAL, EARS NORMAL, NOSE NORMAL NECK: SUPPLE, NONTENDER CHEST AND RESPIRATORY: AIRWAY PATENT, NO RESPIRATORY DISTRESS, NO ACCESSORY MUSCLE USE HEART: REGULAR RATE/RHYTHM ABDOMEN: SOFT, NONTENDER, NO ORGANOMEGALY, QUIET BOWEL SOUNDS VASCULAR: NORMAL PERIPHERAL PULSES, NORMAL CAPILLARY REFILL. MUSCULOSKELETAL: NORMAL RANGE OF MOTION, NONTENDER BACK NEUROLOGIC: ALERT AND ORIENTED ?3, INSIDE SALES SPECIALIST IS NORMAL TESTED, NO GROSS MOTOR DEFICIT Course Vital Signs Vital signs: Vital Signs Temperature 36.4 C L 03/25/24 14:18 Pulse Rate 87 03/25/24 14:18 Respiratory Rate 16 03/25/24 14:18 Blood Pressure 133/88 03/25/24 14:18 Pulse Oximetry 99 03/25/24 14:18 Oxygen Delivery Room Air 03/25/24 14:18 Temperature 36.4 C L 03/25/24 14:18 Pulse Rate 81 03/25/24 17:15 Respiratory Rate 16 03/25/24 17:15 Blood Pressure 137/86 03/25/24 17:15 Pulse Oximetry 100 03/25/24 17:15 Oxygen Delivery Room Air 03/25/24 14:18 MDM - Female Genitourinary MDM Narrative Medical decision making narrative: PATIENT PRESENTS WITH URINARY TRACT INFECTION SYMPTOMS INCLUDING URGENCY, FREQUENCY AND BURNING SENSATION, SHE BELIEVED THAT ANTIBIOTIC DID NOT WORK. VITAL SIGNS ARE STABLE PHYSICAL EXAMINATION SHOWING THAT THE PATIENT NOT IN ANY PAIN OR DISTRESS DIFFERENTIAL DIAGNOSIS: PERSISTENT URINARY TRACT INFECTION, OVERACTIVE BLADDER SYMPTOMS, ANXIETY LIKE SYMPTOMS, VIRAL INFECTION BLOOD WORKUP TODAY INCLUDES CBC, CMP, SHOWED NORMAL WBC OTHERWISE INSIGNIFICANT FINDING URINALYSIS SHOWED NO EVIDENCE OF INFECTION CHEST X-RAY SHOWED NO ACUTE ABNORMALITIES PATIENT DENIES ANY VAGINAL BLEEDING OR DISCHARGE. PATIENT WAS ADVISED TO CONTINUE HOME MEDICATIONS, 2 DAYS EXCUSE OF WORK AND FOLLOW-UP WITH HER FAMILY PHYSICIAN AND TAKE TYLENOL, IBUPROFEN NEEDED Differential Diagnosis Differential diagnosis: Likely other ( ABOVE) Medical Records Attestation: I reviewed the patient's medical records. Lab Data Attestation: I reviewed the patient's lab results. 03/25/24 17:15 03/25/24 17:15 Labs: Lab Results 03/25/24 03/25/24 Range/Units 17:05 17:15 WBC 5.8 (4.5-10.0) K/mm3 RBC 4.45 (4.2-5.4) M/mm3 Hgb 12.8 (12.0-15.0) g/dL Hct 39.4 (37.0-47.0) % MCV 88.5 (80-100) fl MCH 28.8 (26-34) pg MCHC 32.5 (32-36) g/dl RDW 14.4 (11.5-14.5) % Plt Count 225 (150-375) k/mm3 MPV 9.8 (7.4-10.4) fl Immature Gran % (Auto) 0.3 (0-0.5) % Neut % (Auto) 58.3 (45.5-73.1) % Lymph % (Auto) 30.0 (18.3-44.2) % [place] % (Auto) 8.8 H (2.6-8.5) % Eos % (Auto) 2.1 (0-4.4) % Baso % (Auto) 0.5 (0.2-1.2) % Lymph # (Auto) 1.73 (0.9-3.2) K/mm3 [place] # (Auto) 0.5 (0.1-0.6) K/mm3 Eos # (Auto) 0.1 (0-0.3) K/mm3 Baso # (Auto) 0.0 (0.0-0.1) K/mm3 Abs Immat Gran (auto) 0.02 (0.00-0.031) K/mm3 Absolute Neuts (auto) 3.4 (1.3-6.7) K/mm3 Absolute Nucleated RBC 0.000 (0.0-0.012) K/mm3 Nucleated RBC % 0.0 (0.0-0.2) % Sodium 138 (137-145) mmol/L Potassium 4.1 (3.4-5.0) mmol/L Chloride 104 (98-107) mmol/L Carbon Dioxide 27 (22-30) mmol/L Anion Gap 7 (4-12) mmol/L BUN 16 (7-17) mg/dL Creatinine 0.60 L (0.7-1.0) mg/dL Estim Creat Clear Calc Not Reportable Estimated GFR > 60 (59 - ) Glucose 92 (65-110) mg/dL Lactic Acid 0.6 L (0.7-2.0) mmol/L Calcium 9.0 (8.4-10.2) mg/dL Total Bilirubin 0.6 (0.2-1.3) mg/dL AST 27 (14-36) U/L ALT 15 (6-35) U/L Alkaline Phosphatase 81 (38-126) U/L Total Protein 8.0 (6.3-8.2) g/dL Albumin 4.0 (3.5-5.1) g/dL Urine Color Yellow (Yellow) Urine Appearance Cloudy H (Clear) Urine pH 5.5 (5.0-9.0) Ur Specific [place] 1.023 (1.001-1.035) Urine Protein Trace (Negative) mg/dL Urine Glucose (UA) Negative (Negative) mg/dL Urine Ketones Negative (Negative) mg/dL Ur Blood (Man) Negative (Negative) Urine Nitrate Negative (Negative) Urine Bilirubin Negative (Negative) Urine Urobilinogen 1.0 (<2.0) mg/dL Add Ur Microanalysis Reviewed Leukocyte Esterase Rfl Negative (Negative) RICHARDSON/UL Urine RBC 0-2 (0-2) /hpf Urine WBC 0-5 (0-3) /hpf Ur Squamous Epith Cells Occasional (Few) /hpf Calcium Oxalate Crystal Present (None) /hpf Urine Bacteria None seen /hpf Urine Casts 0-2 Critical Care Time Critical Care Time Critical Care Time: No Discharge Plan Discharge Clinical Impression: Dysuria Patient Disposition: Home, Self-Care Condition: Stable Instructions: Dysuria (ED) Additional Instructions: RETURN IF SYMPTOMS ARE WORSENING , CALL YOUR FAMILY PHYSICIAN/DR. NETTLES FOR APPOINTMENT, TAKE TYLENOL NEEDED FOR ACHES AND PAIN, CONTINUE HOME MEDICATIONS. Prescriptions: No Action oxybutynin chloride 10 mg tablet extended release 24hr 20 mg PO DAILY cholecalciferol (vitamin D3) 50 mcg (2,000 unit) capsule 50 mcg PO DAILY cefpodoxime 200 mg tablet 200 mg PO Q12H 14 Days Qty: 28 0RF Rx Instructions: must administer with a meal/food ondansetron 4 mg tablet,disintegrating 4 mg PO Q8H PRN (Reason: nausea and vomiting) Qty: 12 0RF levothyroxine 112 mcg tablet 112 mcg PO DAILY Qty: 90 1RF cholecalciferol (vitamin D3) 1,250 mcg (50,000 unit) tablet 1,250 mcg PO WEEKLY Qty: 12 1RF mecobalamin (vitamin B12) 1,000 mcg tablet,chewable 1,000 mcg PO DAILY Follow-up/Referrals: Spencer Nettles MD [Physician] - 03/26/24 Miryam Asencio MD [Primary Care Provider] - Stand Alone Forms: Work/School Release IP
[2024-03-25 18:35] VITALS: BP 122/74; PULSE 76; RESP 16; TEMP 36.7; O2SAT 100
== END 2024-03-25 18:56 | disposition home or self-care (01) ==
PROVIDERS: Physician Assistant; Student in an Organized Health Care Education/Training Program; Emergency Provider Emergency Medicine; PCP Family Medicine
DX: R30.0 Dysuria (principal); E03.9 Hypothyroidism, unspecified; Z87.442 Personal history of urinary calculi
CPT/HCPCS: 36415; 71045; 80053; 81001; 83605; 85025; 99283

== ENCOUNTER 2024-04-26 11:12 | Emergency (ER) | payer OTHER, SELFPAY ==
--- NOTE | 2024-04-26 11:14 | ED_ITS ---
HPI - Back Pain/Injury General Chief Complaint: Back Pain/Injury Stated Complaint: Back Injury Time Seen by Provider: 04/26/24 11:31 Source: patient and RN notes reviewed Mode of arrival: ambulatory Limitations: no limitations History of Present Illness HPI Narrative: 59-year-old female presents with concern for right low back pain that started Tuesday after shoveling snow. She reports when she was lifting a heavy shovel she felt a pain. She reports paraspinal pain not midline pain. She denies loss of bowel or bladder function, perianal anesthesia, weakness in any extremity, fever. She reports she took Tylenol without relief. She reports she can find a position of comfort, but moving, bending, twisting makes her back hurt. She reports walking helps. MD elicited complaint: back pain Related Data Home Medications ?Medication ?Instructions ?Recorded ?Confirmed ?Last Taken ?Type oxybutynin chloride 10 mg 20 mg PO DAILY 09/22/23 04/26/24 Unknown History tablet,extended release 24 hr cholecalciferol (vitamin D3) 50 50 mcg PO DAILY 03/19/24 03/29/24 Unknown History mcg (2,000 unit) capsule mecobalamin (vitamin B12) 1,000 1,000 mcg PO DAILY 03/22/24 04/26/24 Unknown History mcg chewable tablet Allergies Allergy/AdvReac Type Severity Reaction Status Date / Time No Known Allergies Allergy Verified 04/26/24 11:17 Review of Systems Review of Systems: CONSTITUTIONAL: Denies malaise, chills, sweats, or fever. CARDIOVASCULAR: Denies chest pain, palpitations, or edema. RESPIRATORY: Denies cough or dyspnea. GASTROINTESTINAL: Denies abdominal pain, nausea, vomiting, diarrhea, loss of bowel function GENITOURINARY: Denies dysuria, hematuria, frequency, loss of bladder function. SKIN: Denies rash or itching. MUSCULOSKELETAL: Reports right low back pain NEUROLOGIC: Denies numbness, weakness, or headache. All systems reviewed & are unremarkable except as noted in HPI and below PMFSH Past Medical History Medical History Overactive bladder Gram-negative bacteremia (~09/2023) History of hypertension Resolved after weight loss. Vitamin D deficiency History of kidney stones Hypothyroidism (acquired) Surgical History Surgical History History of endometrial ablation History of laparoscopic adjustable gastric banding With subsequent removal. History of tubal ligation History of cystoscopy (03/2017) Cystoscopy and left ureteroscopy. History of cholecystectomy (03/2011) History of hysterectomy (01/2014) History of gastric bypass (04/2017) Family History Family History Mother Patient's mother is , Onset Age: 34 Family history of malignant neoplasm of uterus Father COPD (chronic obstructive pulmonary disease) Social History Social History Social History: Surrogate medical decision maker: Destinee Lugo, daughter. Code status: Full code. Smoking status: Never smoker Second hand tobacco smoke exposure: Yes Alcohol intake: never Substance use: never Substance use type: does not use Do You Feel Safe in your Home?: Yes Lack of Transportation: No Lack of Food: Never True Current Housing: I Have Housing Concerned About Future Housing: No Difficulty Paying Gas/Electric Bills: No Difficulty Paying for Meds: No Currently Unemployed: No Education: Associate Degree Difficulty w/ Childcare or Family Care: No Living arrangements: with family Occupation/Education: occupation Spiritual care concerns: No Agree to blood products: Yes Comments At time of signature, agree with nursing past medical, surgical, social and family history. There is no relevant family history pertinent to the presenting complaint Exam Narrative: GENERAL: Well-appearing, well-nourished, and in no acute distress. HEAD: Normocephalic, atraumatic. EYES: PERRLA and EOMI. NECK: Supple. No lymphadenopathy. CHEST: Clear to auscultation. No respiratory distress. HEART: Regular rate and rhythm. Distal pulses palpable and equal, cap refill <3 seconds ABDOMEN: Soft, nontender, nondistended, normal active bowel sounds, no palpable or pulsatile masses. No CVA tenderness MUSCULOSKELETAL: Normal range of motion and strength in all extremities; 5/5 strength with hip flexion and extension, dorsiflexion and extension, knee flexion and extension, plantar flexion and extension. Normal sensation in dermatomal distributions with sensitivity to light touch and pain. No midline back tenderness to palpation. Right paraspinal tenderness. Transfers from sitting to standing. SKIN: Warm, dry, no rash. No ecchymosis, erythema, open wounds to back. NEURO: No focal deficits. Alert and oriented x3. Reflexes intact. Normal gait. PSYCH: Normal mood and affect Course Course Emergency Course: Patient is aware of diagnosis, understands and agrees to treatment plan. Anticipatory guidance given. Patient agrees to follow-up as directed and is aware of reasons to seek care at the emergency department. Portions of this record may have been created with voice recognition software Level of Care: Express Care Visit Vital Signs Vital signs: Reviewed. MDM - Back Pain/Injury MDM Narrative Medical decision making narrative: I evaluated this in the express care. History is obtained from patient who is an independent historian and physical exam was performed.? Available medical records were reviewed. ? Exam findings and relevant testing show no acute concerns or changes; patient is non-toxic appearing and is in no distress. No risk factors or findings concerning for epidural abscess, diskitis, vertebral osteomyelitis, cord compression, cauda equina, vertebral fracture or bone malignancy, AAA, or pyelonephritis. Patient instructed to consider further imaging and workup through their primary care physician as an outpatient if symptoms persist. ? Differential diagnosis and treatment plan were discussed with the patient. Patient agrees with discussion and after shared medical decision making agrees with plan of care. All questions were answered to the patient's satisfaction. Patient is appropriate for outpatient treatment and follow-up. Critical Care Time Critical Care Time Critical Care Time: No Discharge Plan Discharge Clinical Impression: Nonspecific low back pain Patient Disposition: Home, Self-Care Condition: Stable Instructions: Acute Low Back Pain (ED) Additional Instructions: Please follow up with your Primary Care Doctor within 48-72 hours - call for an appointment. Walking and other gentle exercising several times a week has been shown to improve back pain; bed rest is not recommended. Take prednisone, take muscle relaxers every 8 hours as needed for muscle spasm- do not drive or make any important decisions while on this medication for it can make you drowsy. You may apply ice to the area as needed. If you experience any worsening pain, swelling, numbness, weakness please go to ER. Contact your doctor or go to the emergency department if you develop problems with bladder or bowel function, weakness or loss of feeling in one or both of your legs, or any other serious concerns. Patient Language: Belarusian Prescriptions: New cyclobenzaprine 10 mg tablet 10 mg PO TID PRN (Reason: muscle spasm) Qty: 20 0RF prednisone 20 mg tablet 40 mg PO DAILY 5 Days Qty: 10 0RF No Action oxybutynin chloride 10 mg tablet extended release 24hr 20 mg PO DAILY cholecalciferol (vitamin D3) 50 mcg (2,000 unit) capsule 50 mcg PO DAILY levothyroxine 112 mcg tablet 112 mcg PO DAILY Qty: 90 1RF cholecalciferol (vitamin D3) 1,250 mcg (50,000 unit) tablet 1,250 mcg PO WEEKLY Qty: 12 1RF mecobalamin (vitamin B12) 1,000 mcg tablet,chewable 1,000 mcg PO DAILY ciprofloxacin HCl 500 mg tablet 500 mg PO Q12H Qty: 20 0RF Follow-up/Referrals: Miryam Asencio MD [Primary Care Provider] - Stand Alone Forms: Work/School Release IP Time of Disposition: 11:37
[2024-04-26 11:19] VITALS: BP 133/94; PULSE 71; RESP 16; TEMP 36.3; O2SAT 100
== END 2024-04-26 11:42 | disposition home or self-care (01) ==
PROVIDERS: Emergency Provider Nurse Practitioner; PCP Family Medicine
DX: M54.50 Low back pain, unspecified (principal); E03.9 Hypothyroidism, unspecified; E55.9 Vitamin D deficiency, unspecified; N32.81 Overactive bladder; Z98.84 Bariatric surgery status
CPT/HCPCS: 99213; G0463

== ENCOUNTER 2024-05-02 14:01 | Outpatient (CLI) | payer OTHER, SELFPAY ==
--- NOTE | ~2024-05-02 | XR_ITS ---
XR sacroiliac joints min 3V Ordering provider: Miryam Asencio MD History: . M53.3 - Sacrococcygeal disorders, not elsewhere classified . Comparison: None. FINDINGS: BONES: No acute fracture or dislocation. JOINTS: The bilateral sacroiliac joint spaces appear narrowed inferiorly with sclerotic changes.. No bony fusion of the sacroiliac joints or bony erosions. SOFT TISSUES: Unremarkable. IMPRESSION: NO ACUTE OSSEOUS ABNORMALITY. BILATERAL SACROILIITIS. Reviewed, dictated and finalized at location A. TUB WORKER HELPER
== END 2024-05-02 14:02 | disposition home or self-care (01) ==
LOC: GOSHIMG 14:02
PROVIDERS: PCP Family Medicine; Visit Provider Family Medicine
DX: M53.3 Sacrococcygeal disorders, not elsewhere classified (principal); M54.50 Low back pain, unspecified; M46.1 Sacroiliitis, not elsewhere classified
CPT/HCPCS: 72202

== ENCOUNTER 2024-06-16 18:01 | Emergency (ER) | payer OTHER, SELFPAY ==
[2024-06-16 18:06] VITALS: BP 146/95; PULSE 79; RESP 16; TEMP 36.6; O2SAT 100
--- NOTE | 2024-06-16 18:06 | ED.URI ---
HPI - URI/Sore Throat General Chief Complaint: Upper Respiratory Infection Stated Complaint: Sore Throat Time Seen by Provider: 06/16/24 18:25 Source: patient and RN notes reviewed Mode of arrival: ambulatory Limitations: no limitations History of Present Illness HPI Narrative: 59-year-old female presents with concern for sore throat, runny nose, ear pain, cough. She reports fever. She reports symptoms for about 3 days MD elicited complaint: cough and sore throat Related Data Home Medications ?Medication ?Instructions ?Recorded ?Confirmed ?Last Taken ?Type oxybutynin chloride 10 mg 20 mg PO DAILY 09/22/23 05/02/24 Unknown History tablet,extended release 24 hr mecobalamin (vitamin B12) 1,000 1,000 mcg PO DAILY 03/22/24 05/02/24 Unknown History mcg chewable tablet Allergies Allergy/AdvReac Type Severity Reaction Status Date / Time No Known Allergies Allergy Verified 06/16/24 18:23 Review of Systems Review of Systems: CONSTITUTIONAL: Reports malaise, fever. EYES: Denies visual changes, redness, or discharge. ENT: Reports rhinorrhea, congestion, otalgia and sore throat. CARDIOVASCULAR: Denies chest pain, palpitations, or edema. RESPIRATORY: Reports cough. Denies dyspnea. GASTROINTESTINAL: Denies abdominal pain, nausea, vomiting, diarrhea SKIN: Denies rash or itching. MUSCULOSKELETAL: Denies myalgia. NEUROLOGIC: Denies headache. All systems reviewed & are unremarkable except as noted in HPI and below PMFSH Past Medical History Medical History Overactive bladder Gram-negative bacteremia (~09/2023) History of hypertension Resolved after weight loss. Vitamin D deficiency History of kidney stones Hypothyroidism (acquired) Surgical History Surgical History History of endometrial ablation History of laparoscopic adjustable gastric banding With subsequent removal. History of tubal ligation History of cystoscopy (03/2017) Cystoscopy and left ureteroscopy. History of cholecystectomy (03/2011) History of hysterectomy (01/2014) History of gastric bypass (04/2017) Family History Family History Mother Patient's mother is , Onset Age: 34 Family history of malignant neoplasm of uterus Father COPD (chronic obstructive pulmonary disease) Social History Social History Social History: Surrogate medical decision maker: Destinee Lugo, daughter. Code status: Full code. Smoking status: Never smoker Second hand tobacco smoke exposure: Yes Alcohol intake: never Substance use: never Substance use type: does not use Do You Feel Safe in your Home?: Yes Lack of Transportation: No Lack of Food: Never True Current Housing: I Have Housing Concerned About Future Housing: No Difficulty Paying Gas/Electric Bills: No Difficulty Paying for Meds: No Currently Unemployed: No Education: Associate Degree Difficulty w/ Childcare or Family Care: No Living arrangements: with family Occupation/Education: occupation Spiritual care concerns: No Agree to blood products: Yes Comments At time of signature, agree with nursing past medical, surgical, social and family history. There is no relevant family history pertinent to the presenting complaint Exam Narrative: GENERAL: Well-appearing, well-nourished, and in no acute distress. HEAD: Normocephalic EYES: PERRLA, conjunctivae clear ENT: Nares clear, turbinates edematous and erythematous, clear discharge. Mucous membranes moist. TM pearly burton with dull light reflex bilaterally; no tragal tenderness. Oropharynx not erythematous without lesions. Tonsils not enlarged and without exudate, no drooling, no hoarseness, no trismus, uvula midline. NECK: Supple. No lymphadenopathy CHEST: Clear to auscultation, breath sounds equal. No wheezing, rhonchi, rales, or stridor. No respiratory distress, speaks in full sentences. HEART: Regular rate and rhythm. No murmur heard. SKIN: Warm, dry, no rash. NEURO: Alert and oriented x3. PSYCH: Normal mood and affect Course Course Emergency Course: Patient is aware of diagnosis, understands and agrees to treatment plan. Anticipatory guidance given. Patient agrees to follow-up as directed and is aware of reasons to seek care at the emergency department. Portions of this record may have been created with voice recognition software Level of Care: Express Care Visit Vital Signs Vital signs: Reviewed. MDM - URI/Sore Throat MDM Narrative Medical decision making narrative: Differential diagnosis considered: [place] virus, strep pharyngitis, allergic rhinitis, upper respiratory tract infection, sinusitis, rhinosinusitis, nasopharyngitis. viral pharyngitis, otitis media, otitis externa, pneumonia, bronchitis, viral cough syndrome, viral syndrome, and influenza. Exam findings show no acute concerns or changes; patient is non-toxic appearing and is in no distress. Patient is appropriate for outpatient treatment and follow-up. Lab Data Attestation: I reviewed the patient's lab results. Critical Care Time Critical Care Time Critical Care Time: No Discharge Plan Discharge Clinical Impression: Upper respiratory infection Patient Disposition: Home, Self-Care Condition: Stable Instructions: Upper Respiratory Infection (ED) Additional Instructions: Your rapid COVID and flu tests are negative Your rapid strep swab was negative today at [facility]. A throat culture will be sent to the laboratory for further testing. If the test is positive, you will receive a phone call within 48 hours and an appropriate antibiotic will be initiated at that time. Your symptoms are likely due to a viral illness, which is not treated with antibiotics. Viral symptoms can be present for up to a few weeks. -Alternate Tylenol and Motrin per package directions for fever or pain. -Antihistamine medication such as Benadryl at night and Zyrtec during the day can help improve symptoms. -Eat and drink things that are easy to swallow, like tea or soup, or popsicles to suck on. -Oral rinses such as: Salt water gargles and/or may use topical anesthetic (eg. Chloraseptic spray) or lozenges to relieve dryness or throat pain). -Frequent hand washing or hand jewelry maker is one of the best ways to prevent spread of infection. -Follow up with primary care provider in 2-3 days if condition is not improving; or seek ER visit if you have trouble breathing, cannot drink enough fluids, have muffled voice, difficulty opening your mouth, or severe swelling. Patient Language: Faroese Prescriptions: New fluticasone propionate [Flonase Allergy Relief] 50 mcg/actuation spray,suspension 2 spray NASAL DAILY 14 Days Qty: 15.8 0RF Rx Instructions: administer into each nostril dextromethorphan-guaifenesin [Mucinex DM] 60-1,200 mg tablet extended release 12 hr 1 tablet PO Q12H Qty: 12 0RF No Action oxybutynin chloride 10 mg tablet extended release 24hr 20 mg PO DAILY cholecalciferol (vitamin D3) 1,250 mcg (50,000 unit) tablet 1,250 mcg PO WEEKLY Qty: 12 1RF mecobalamin (vitamin B12) 1,000 mcg tablet,chewable 1,000 mcg PO DAILY levothyroxine 112 mcg tablet See Rx Instructions .ROUTE .COMPLEX Qty: 90 1RF Dose Instruction: TAKE 1 TABLET BY MOUTH EVERY DAY Rx Instructions: TAKE 1 TABLET BY MOUTH EVERY DAY Follow-up/Referrals: Miryam Asencio MD [Primary Care Provider] - Time of Disposition: 18:40
[2024-06-16 18:27] LABS: EDSTREPNEGPOS1 Negative (Negative)
[2024-06-16 18:46] LABS: EDCOVIDSCREEN Negative (Negative); EDINFLUASCREEN Negative (Negative); EDINFLUBSCREEN Negative (Negative)
== END 2024-06-16 18:46 | disposition home or self-care (01) ==
PROVIDERS: Emergency Provider Nurse Practitioner; PCP Family Medicine
DX: J06.9 Acute upper respiratory infection, unspecified (principal); Z20.822 Contact with and (suspected) exposure to COVID-19
CPT/HCPCS: 87081; 87426; 87804; 87880; 99213; G0463

== ENCOUNTER 2024-08-01 11:35 | Outpatient (CLI) | payer OTHER, SELFPAY ==
--- NOTE | ~2024-08-01 | MM_ITS ---
EXAMINATION: MM screening [place] BI w tigist HISTORY: Screening TECHNIQUE: Craniocaudal and mediolateral oblique 3-D tomosynthesis images were obtained and synthetic 2-D images were generated. CAD analysis was submitted and interpreted. COMPARISON: Comparison to multiple prior studies sequentially, with oldest reviewed study dated 12/06. BREAST PARENCHYMAL COMPOSITION: Not Dense: The breasts are almost entirely fatty. FINDINGS: There is no evidence of suspicious mass, calcification, or architectural distortion to sugg est malignancy in either breast. There has been no suspicious interval change. IMPRESSION: 1. No mammographic evidence of malignancy. 2. Recommend routine screening mammography in one year. BI-RADS Category 1: Negative Reviewed, dictated and finalized at location B.
== END 2024-08-01 11:36 | disposition home or self-care (01) ==
LOC: MICIMG 11:36
PROVIDERS: PCP Family Medicine; Visit Provider Nurse Practitioner
DX: Z12.31 Encounter for screening mammogram for malignant neoplasm of breast (principal)
CPT/HCPCS: 77063; 77067

== ENCOUNTER 2024-08-13 09:02 | Outpatient (CLI) | payer OTHER, SELFPAY ==
--- NOTE | ~2024-08-13 | XR_ITS ---
XR abdomen/kub 1V Ordering provider: Arcadio Montemayor MD History: . Hx of history stones . Comparison: None. FINDINGS: BOWEL: Fecal material is seen in the colon suggestive of constipation. Nonobstructive bowel gas patte rn. ORGANOMEGALY: None. SIGNIFICANT PATHOLOGIC CALCIFICATIONS: Possible left kidney lower pole stone. Calcification is seen i n the right and left upper quadrant most likely artifactual. Status post cholecystectomy noted. OTHER: No free air is seen under the diaphragm. Pubic symphysitis. Bilateral sacroiliacs. IMPRESSION: NO ACUTE ABDOMINAL FINDINGS. Highly suggestive left kidney stone. Constipation. Reviewed, dictated and finalized at location A.
--- OUTSIDE RECORDS SUMMARY | 2024-08-13 09:40 | XMS_ITS | Data Portability ---
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 Patient will come back in a year unless there are new symptoms. [email or web address] Not available 02/26/2020 11:46:21 03/17/2021 03/17/2021 Annual gynecological exam performed. Patient will come back in a year unless there are new symptoms. Not available 03/17/2021 15:01:52 03/08/2023 03/08/2023 Annual gynecological exam performed. Patient will come back in a year unless there are new symptoms. [email or web address] Not available 03/08/2023 10:30:38 03/12/2024 03/12/2024 Annual gynecological exam performed. Patient will come back in a year unless there are new symptoms. [email or web address] Not available 03/12/2024 14:57:23 Plan of Treatment Reminders Order Date Submit Date Provider Last Modified By Organization Details Last Modified Time Details Appointments None recorded. Lab lh + FSH, serum 2019 020 BOIS D ARC [facility] ([facility]), [address] , [address], [place], [address], 0 04:55:34 Referral None recorded. Procedures None recorded. Surgeries None recorded. Imaging DEXA, axial skeleton + vertebral fracture assessment 2023 024 [facility], [address], [address], [place], [address], 4 04:03:43 MAMMO, screening, digital, bilateral 2023 024 [facility], [address], [address], [place], [address], 5 13:46:25 MAMMO, screening, bilateral 2022 023 [email or web address] [facility], [address], [address], [place], [address], 3 10:53:03 Medication Orders None recorded. Patient TargetsNo targets recorded. Patient InstructionsNo instructions recorded. Reason for Referral None Reported. Results Created Date Observation Date Name Description Value Unit Range Abnormal Flag Note LastModifiedBy Organization Detail LastModifiedTime 02/26/20 20 02/27/2020 lh + FSH, serum luteinizing hormone 33.20 mIU/m L LH Refer ence Range Men: 1.7 - 8.6 Women : Folli cular phase 2.4 - 12.6 Ovula tion phase 14.0 - 95.6 Lutea l phase 1.0 - 11.4 Postm enopa use 7.7 - 58.5 Not Available [facility] ([facility] [employer]) [facility] [address], [place], [address], 02/27/2020 04:55:34 02/26/20 20 02/27/2020 lh + FSH, serum FSH 41.30 mIU/m L FSH Refer ence Range Men: 1.5 - 12.4 Women : Folli cular phase 3.5 - 12.5 Ovula tion phase 4.7 - 21.5 Lutea l phase 1.7 - 7.7 Postm enopa use 25.8 - 134.8 Not Available [facility] ([facility] [employer]) [facility] [facility] [address], [place], [address], 02/27/2020 04:55:34 06/24/19 24 06/24/2023 MAMMO , scree jessenia, bilat eral No observ ation record ed. [facility] [address], [place], [address], 06/28/2023 12:57:06 08/02/19 25 08/01/2024 MAMMO , scree jessenia, digit al, bilat eral No observ ation record ed. [facility] [address], [place], [address], 08/01/2024 15:43:28 Result Notes None recorded. Problems Name Problem SNOMED Code Status Onset Date Resolution Date Notes Provider Name and Address Organization Details Recorded Time Anemia [id number] Completed 201303/16/2021 Anemia;Re corded Elsewhere : No Locati on: [facility] So urce: EHR Chron ic: N Practic e ID: 0001 Bill able Time: 02:00:00 PM Guadalupe [facility] 16:32:56 Postoper ative follow-u p visit Completed 201303/16/2021 Follow-up examinati on, following unspecifi ed surgery;R ecorded Elsewhere : No Locati on: [facility] So urce: EHR Chron ic: N Practic e ID: 0001 Bill able Time: 03:30:00 PM Guadalupe Burks [facility] 1 16:33:06 Speciali zed medical examinat ion Completed 201003/16/2021 Gynecolog ical Examinati on;Record ed Elsewhere : No Locati on: [facility] So urce: EHR Chron ic: N Practic e ID: 0001 Bill able Time: 01:15:00 PM Guadalupe Burks [facility] 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 16:33:14 Dysfunct ional uterine bleeding Completed 201303/16/2021 Other disorders of menstruat ion and other abnormal bleeding from female genital tract;Rec orded Elsewhere : No Locati on: [facility] So urce: EHR Chron ic: N Practic e ID: 0001 Bill able Time: 10:30:00 AM Guadalupe Burks [facility] 16:32:[address] Concept Completed 201803/16/2021 Encntr for general adult medical exam w/o abnormal findings; Recorded Elsewhere : No Locati on: [facility] So urce: EHR Chron ic: N Practic e ID: 0001 Bill able Time: 01:30:00 PM Guadalupe Burks [facility] 16:33:13 Screenin g for malignan t neoplasm of cervix Completed 201003/16/2021 Screening for malignant neoplasms of the cervix;Re corded Elsewhere : No Locati on: [facility] So urce: EHR Chron ic: N Practic e ID: 0001 Bill able Time: 01:15:00 PM Guadalupe Burks [facility] 16:33:09 Evaluati on finding [id number] Completed 201803/16/2021 Oth abn and inconclus manolo findings on dx imaging of breast;Re corded Elsewhere : No Locati on: [facility] So urce: EHR Chron ic: N Practic e ID: 0001 Bill able Time: 12:26:33 PM Guadalupe Burks [facility] 16:32:57 Screenin g for malignan t neoplasm of rectum Completed 201703/16/2021 Encounter for screening for malignant neoplasm of rectum;Re corded Elsewhere : No Locati on: [facility] So urce: EHR Chron ic: N Practic e ID: 0001 Bill able Time: 11:00:00 AM Guadalupe Burks [facility] 16:33:11 Urinary incontin ence [id number] Completed 201003/16/2021 Urinary incontine nce, unspecifi ed;Record ed Elsewhere : No Locati on: [facility] So urce: EHR Chron ic: N Practic e ID: 0001 Bill able Time: 01:15:00 PM Guadalupe Burks [facility] 16:33:17 Pre-surg boo evaluati on Completed 201303/16/2021 Pre-opera tive examinati on, unspecifi ed;Record ed Elsewhere : No Locati on: [facility] So urce: EHR Chron ic: N Practic e ID: 0001 Bill able Time: 10:00:00 AM Guadalupe Burks [facility] 16:33:07 Mixed urinary incontin ence [id number] Completed 201003/16/2021 Mixed incontine nce (male) (female); Recorded Elsewhere : No Locati on: [facility] So urce: EHR Chron ic: N Practic e ID: 0001 Bill able Time: 04:30:00 PM Guadalupe Burks [facility] 16:33:04 Female stress incontin ence [id number] Completed 201003/16/2021 Stress incontine nce, female;Pr actice ID: 0001 Guadalupe Burks [facility] 16:33:01 Menstrua tion finding Completed 201303/16/2021 Menorrhag ia Excessive Menstruat ion;Pract ice ID: 0001 Guadalupe Burks [facility] 16:33:02 Problem Notes None recorded. Procedures Surgical History Date Name Laterality Status Provider Name and Address Organization Details Recorded Time 019 Date of Last Mammogram completed Guadalupe Burks [facility] 03/17/2021 15:04:23 019 Date of Last Pap Smear completed Ashanti Tello [facility] 03/08/2023 10:35:21 Tubal Ligation completed [facility] 02/26/2020 11:51:20 Endometrial Ablation completed [facility] 02/26/2020 11:51:29 Cholecystectomy completed [facility] 02/26/2020 11:51:34 Colonoscopy completed Amrailis Gonzalez [facility] [address], [place], [address], [facility] 03/17/2021 15:11:50 Total Hysterectomy completed Mario Gonzalez [facility] [address], [place], [address], [facility] 03/17/2021 15:12:10 Gastric Bypass completed [facility] 02/26/2020 11:52:02 Hysteroscopy completed [facility] 02/26/2020 11:52:08 Imaging Results Imaging Date Name Status LastModified by [facility] Details LastModified Time 06/24/2023 MAMMO, screening, bilateral completed [facility] [address], [place], [address], 06/28/2023 12:57:06 08/01/2024 MAMMO, screening, digital, bilateral completed [facility] [address], [place], [address], 08/01/2024 15:43:28 Procedure Notes None recorded. Medical Equipment None Reported. Allergies No known drug allergies Medications Name Sig Start Date Stop Date Status Note LastModified by Organization Details LastModified Time cyclobenz aprine 10 mg tablet TAKE 1 TABLET BY MOUTH THREE TIMES A DAY NEEDED FOR MUSCLE SPASMS 03/08 completed Not Available Not Available Not Available cefpodoxi me 200 mg tablet TAKE 1 TABLET BY MOUTH TWICE A DAY *TAKE WITH FOOD* active Not Available Not Available No t Available oxybutyni n chloride ER 10 mg tablet,ex tended release 24 hr TAKE 2 TABLETS BY MOUTH EVERY DAY active Not Available Not Available No t Available azithromy dwight 250 mg tablet TAKE 2 TABLETS BY MOUTH TODAY, THEN TAKE 1 TABLET DAILY FOR 4 DAYS DIRECTED active Not Available Not Available No t Available ciproflox acin 500 mg tablet TAKE 1 TABLET BY MOUTH EVERY 12 HOURS active Not Available Not Available No t Available sulfameth oxazole 800 mg-trimet hoprim 160 mg tablet TAKE 1 TABLET BY MOUTH EVERY 12 HOURS active Not Available Not Available No t Available phentermi ne 30 mg capsule TAKE 1 CAPSULE BY MOUTH DAILY, MUST ADMINSTE R 2 HOURS AFTER BREAKFAS T active Not Available Not Available No t Available Multi-Vit frank HP/Minera ls capsule active Prescrib ed Elsewher e: Yes Loca tion: [facility] odify By: ac [email or web address] DateTime : 11/22/19 18 11:00:00 AM Not Available Not Available Not Available losartan 25 mg tablet take 1 tablet by oral route every day 02/28 completed Prescrib ed Elsewher e: Yes Loca tion: [facility] odify By: arley beck DateTime : 01/05/20 11 04:30:00 PM Not Available Not Available Not Available ergocalci ferol (vitamin D2) 1,250 mcg (50,000 unit) capsule 1250 MCG ORALLY WEEKLY active Not Available Not Available No t Available methylpre dnisolone 4 mg tablets in a dose pack TAKE 6 TABLETS ON DAY 1 DIRECTED ON PACKAGE AND DECREASE BY 1 TAB EACH DAY FOR A TOTAL OF 6 DAYS 03/08 completed Not Available Not Available Not Available ondansetr on 4 mg disintegr ating tablet DISSOLVE 1 TABLET ON TONGUE EVERY 8 HOURS NEEDED active Not Available Not Available No t Available levothyro xine 112 mcg tablet TAKE 1 TABLET BY MOUTH EVERY DAY active Not Available Not Available No t Available nitrofura ntoin monohydra te/macroc rystals 100 mg capsule TAKE 1 CAPSULE BY MOUTH EVERY 12 HOURS FOR 5 DAYS WITH MEALS OR FOOD active Not Available Not Available No t Available Enablex 7.5 mg tablet,ex tended release take 1 tablet by oral route every day 01/04 completed Prescrib ed Elsewher e: Yes Loca tion: [facility] odify By: cande [email or web address] DateTime : 12/24/19 11 01:15:00 PM Not Available Not Available Not Available Enablex 15 mg tablet,ex tended release take 1 tablet (15MG) by oral route every day 01/17 completed Prescrib ed Elsewher e: No Locat ion: [facility] odify By: arley beck DateTime : 12/24/19 11 01:15:00 PM Not Available Not Available Not Available Vitamin C 03/08 completed Not Available Not Available Not Available vitamin K 03/08 completed Not Available Not Available Not Available vitamin A 03/08 completed Not Available Not Available Not Available levothyro xine 03/17 completed Not Available Not Available Not Available vitamin E 03/08 completed Not Available Not Available Not Available Vitamin D 03/17 completed Not Available Not Available Not Available multivita min 03/08 completed Not Available Not Available Not Available oxybutyni n 03/08 completed Not Available Not Available Not Available cholecalc iferol (vitamin D3) 1,250 mcg (50,000 unit) capsule TAKE 1 CAPSULE BY MOUTH WEEKLY active Not Available Not Available No t Available D3 Plus K2 Dots 25 mcg (1,000 unit)-90 mcg disintegr ating tablet 03/08 completed Prescrib ed Elsewher e: Yes Loca tion: [facility] odify By: ac mckeon DateTime : 11/22/19 18 11:00:00 AM Not Available Not Available Not Available D3 Plus K2 Dots 03/17 completed Not Available Not Available Not Available Tirosint 13 mcg capsule take 1 capsule by oral route every day 03/17 completed Prescrib ed Elsewher e: Yes [facility] By: arley beck DateTime : 01/18/20 12 09:30:00 AM Not Available Not Available Not Available Gelnique 28 mg/0.92 gram (3 %) transderm al gel pump apply 3 pump by topical route every day to dry, intact skin on the abdomen, upper arms/kevin ulders or thighs rotating applicat ion site daily. 03/17 completed Prescrib ed Elsewher e: Yes Loca tion: [facility] odify By: arley beck DateTime : 01/18/20 12 09:30:00 AM Not Available Not Available Not Available BinaxNOW COVID-19 Ag Self Test kit USE DIRECTED PER PACKAGE DIRECTIO N 03/08 completed Not Available Not Available Not Available Vitals Date Recorded Body height Body mass index (BMI) Body weight Systolic blood pressure Diastolic blood pressure Provider Name and Address Organization Details Last Updated DateTime 03/17/2021 149.86 cm 37.6 kg/m2 27064.18 g 131 mm[Hg] 79 mm[Hg] Guadalupe Burks [facility] 1 15:02:24 Date Recorded Body height Body mass index (BMI) Body weight Systolic blood pressure Diastolic blood pressure Provider Name and Address Organization Details Last Updated DateTime 03/08/2023 149.86 cm 42.2 kg/m2 93900.81 g 103 mm[Hg] 73 mm[Hg] Ashanti Tello [facility] 3 10:32:34 Date Recorded Body height Body mass index (BMI) Body weight Systolic blood pressure Diastolic blood pressure Provider Name and Address Organization Details Last Updated DateTime 03/12/2024 149.86 cm 39.6 kg/m2 53362.1 g 136 mm[Hg] 83 mm[Hg] Annelise Ivy [facility] 4 14:57:44 Date Recorded Body height Body mass index (BMI) Body weight Systolic blood pressure Diastolic blood pressure Provider Name and Address Organization Details Last Updated DateTime 02/26/2020 149.86 cm 37 kg/m2 16209.4 g 113 mm[Hg] 78 mm[Hg] Sapna Aramis [facility] 0 12:03:48 Social History Question Answer Notes LastModified by Organizat ion Details LastModified Time Tobacco Smoking Status Never Smoker Mere Wynne carine [facility] 03/08/2023 10:27:23 Do You Have An Advance Directive? No Information not available 03/17/2021 What Is Your Level Of Alcohol Consumption? None Information not available 03/17/2021 Are You Blind Or Do You Have Difficulty Seeing? No Information not available 03/17/2021 What Is Your Level Of Caffeine Consumption? Occasional Information not available 03/17/2021 How Much Tobacco Do You Chew? None Information not available 03/17/2021 In The 14 Days Before Symptom Onset, Have You Had Close Contact With A Laboratory-confir med COVID-19 While That Case Was Ill? No Information not available 03/17/2021 In The 14 Days Before Symptom Onset, Have You Had Close Contact With A Person Who Is Under Investigation For COVID-19 While That Person Was Ill? No Information not available 03/17/2021 Have You Been To An Area Known To Be High Risk For COVID-19? No Information not available 03/17/2021 Are You Deaf Or Do You Have Serious Difficulty Hearing? No Information not available 03/17/2021 What Type Of Diet Are You Following? REGULAR Information not available 03/17/2021 What Is The Highest Grade Or Level Of School You Have Completed Or The Highest Degree You Have Received? 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 No Information not available 03/17/2021 Do You Use Protection During Sex? No Information not available 03/17/2021 Do You Use Your Seat Belt Or Car Seat Routinely? Yes Information not available 03/17/2021 Do You Have Smoke And Carbon Monoxide Detectors In Your Home? Yes Information not available 03/17/2021 How Much Tobacco Do You Smoke? No Information not available 03/17/2021 Do You Feel Stressed (tense, Restless, Nervous, Or Anxious, Or Unable To Sleep At Night)? [id number] Information not available 03/17/2021 Do You Use Any Illicit Or Recreational Drugs? No Information not available 03/17/2021 Do You Use Sunscreen Routinely? No Information not available 03/17/2021 Have You Used IV Drugs? No Information not available 03/17/2021 Sex: Unknown Functional Status Question Answer Note LastModified by Organizat ion Details LastModified Time Are you able to walk? YESWOREST Information not available 03/17/2021 What is your exercise level? Occasional Information not available 03/17/2021 Mental Status None recorded. Family History Relationship Description Onset Age of this Age Resolved Age Notes LastModified by Organization Details LastModified Time Father Diabetes mellitus [email or web address] Not available 2019 11:50:23 Maternal Grandmother Diabetes mellitus [email or web address] Not available 2019 11:50:23 Brother Diabetes mellitus [email or web address] Not available 2019 11:50:23 Brother Hypertensive disorder [email or web address] Not available 2019 11:50:35 Sister Hypertensive disorder [email or web address] Not available 2019 11:50:35 Paternal Aunt Malignant tumor of breast Not available 2020 15:05:24 Mother Malignant neoplasm of uterus Not available 2020 15:05:32 Medical History Condition Response Other Y Anemia Y Thyroid Problems Y Gynecological History Statement/Question Response Date of Last Mammogram 02/13/2019 Date of LMP 04/18/2013 N STIs/STDs N HPV Vaccine N 12 Current Control Method Hysterectom y Age at First Child 20 If Post Menopausal, Age at Menopause 89 4 Date of Last Colonoscopy Sexually Active? Y Menses Monthly N Age of first menstrual cycle 13 Date of Last Pap Smear 01/09/2019 Sexual Problems? N Desired Control Method LMP Unknown N Obstetrics History GPAL:G 2 P 0 0 0 2 Type Value Living 2 Total 2 Past Encounters Encounter ID Performer Location Encounter Start Date Encounter Closed Date Diagnosis/Indication Diagnosis SNOMED-CT Code Diagnosis ICD10 Code Diagnosis Note [id number] Amarilis Gonzalez [facility] [address] [address] 02/26/2020 11:43:31 02/26/2020 17:08:54 Gynecologic examination [id number] Z01.419 Take Calcium with Vitamin D 12-1500mg daily. Do monthly self breast exams. It is advised to get annual flu shot in the fall and she could obtain at [facility] or [facility]. If you haven't received the Tdap vaccine in the last 10 years you should obtain one as well. Have mammogram yearly, bone density every 2-3 years and colonoscop y every 5-10 years depending on findings and history. Engage in daily exercise of low impact aerobic exercise 45-60 minutes 4-5 times weekly. Avoid tobacco and illicit drugs as well as using moderation with alcohol intake less than 1-2 8 oz beverages daily. This lifestyle behavior pattern will lead to less health conditions and longer life span. If BMI greater than 25 weight watchers or dietary consult advised. Questions have been answered. Patient appears to understand instructio ns, but if you have any further questions call or respond to this email Mammo order Pap/hpv d/c unless otherwise indicated. UTD colonoscop y with PCP Dexa not indicated this year. Menopausal symptom 01360 002 N95.1 Recommend vag moisturizi ng daily & with sex. If need further treatment can return to talk about vag estrace. [id number] Amarilis Gonzalez [facility] [address],[facility] [place] [address] 03/17/2021 14:43:38 03/17/2021 16:18:38 Gynecologic examination [id number] Z01.419 Take Calcium with Vitamin D 12-1500mg daily. Do monthly self breast exams. It is advised to get annual flu shot in the fall and she could obtain at [facility] or [facility]. If you haven't received the Tdap vaccine in the last 10 years you should obtain one as well. Have mammogram yearly, bone density every 2-3 years and colonoscop y every 5-10 years depending on findings and history. Engage in daily exercise of low impact aerobic exercise 45-60 minutes 4-5 times weekly. Avoid tobacco and illicit drugs as well as using moderation with alcohol intake less than 1-2 8 oz beverages daily. This lifestyle behavior pattern will lead to less health conditions and longer life span. If BMI greater than 25 weight watchers or dietary consult advised. Questions have been answered. Patient appears to understand instructio ns, but if you have any further questions call or respond to this emailGenet ic screening discussed Mammo ordered Pap/hpv d/c unless otherwise indicated. UTD colonoscop y with PCP Dexa UTD by PCP [id number] [facility] [address] [address] 03/08/2023 10:26:24 03/08/2023 10:48:48 Gynecologic examination [id number] Z01.419 Take Calcium with Vitamin D 12-1500mg daily. Do monthly self breast exams. It is advised to get annual flu shot in the fall and she could obtain at [facility] or [facility] clinic. If you haven't received the Tdap vaccine in the last 10 years you should obtain one as well. Have mammogram yearly, bone density every 2-3 years and colonoscop y every 5-10 years depending on findings and history. Engage in daily exercise of low impact aerobic exercise 45-60 minutes 4-5 times weekly. Avoid tobacco and illicit drugs as well as using moderation with alcohol intake less than 1-2 8 oz beverages daily. This lifestyle behavior pattern will lead to less health conditions and longer life span. If BMI greater than 25 weight watchers or dietary consult advised. Questions have been answered. Patient appears to understand instructio ns, but if you have any further questions call or respond to this emailPap/h pv USPSTF recommends against screening for cervical cancer in women older than 65yo, those who've had a hysterecto my for non-cancer indication s, & who have had adequate prior screening & are not otherwise at high risk for cervical cancer. STD Screen declined Genetic Screen discussed Colon Screen UTD PCP Dexa Screen UTD PCP Routine Labs UTD PCP Screening mammography 24 [id number] Z12.31 [id number] KRYSTA Castaneda [place] [address] [address] 03/12/2024 14:11:16 03/12/2024 15:11:07 Gynecologic examination [id number] Z01.419 WWEpostmen opausalPap - not indicatedS TI screen - declinedMa mmogram - order givenColon cancer screening - UTDDexa - order givenRouti ne labs - UTD/PCPRTC in 1 yr or sooner if needed Do monthly self breast exams.It is advised to get annual flu shot in the fall and she could obtain at local pharmacy. If you haven't received the Tdap vaccine in the last 10 years you should obtain one as well.Have mammogram yearly, bone density every 2-3 years and stay up to date on colon cancer screening. Engage in regular exercise. Avoid tobacco and illicit drugs. This lifestyle behavior pattern will lead to less health conditions and longer life span. If BMI greater than 25 dietary consult advised.Qu estions have been answered. Screening for malignant neoplasm of breast 279319326 Z12.39 Screening for osteoporosis [id number] Z13.820 Health Concerns Section Related Observation LastModified by Organization Detai ls LastModified Time None Recorded Concern Status LastModified by Organization Details LastModified Time None Recorded Advance Directives Directive N: Payers Encounter Date Sequence Insurance Name Policy Number Policy Case Covered Member ID Case Member ID Guarantor Name 02/26/2020 1 [facility] [id number] Hermelinda Britt [id number] Hermelinda Britt 03/17/2021 1 [facility] [id number] Hermelinda Britt [id number] Hermelinda Britt 03/08/2023 1 [facility] [id number] Hermelinda Britt [id number] Hermelinda Britt 03/12/2024 1 [employer] [id number] Hermelinda Britt [id number] Hermelinda Britt Notes Date Note Type Note Provider Name and Address Organization Details Recorded Time 02/26/2020 text/html Annual GYNReport ed bypatient.History:n o gynecologic complaints Menstrual cycle:hysterectomy for benign causes Urinary symptoms:No hematuria; No incontinence Vulva:No genital lesion Vagina:Normal vaginal discharge Breast:No breast pain; No breast lump; No nipple discharge Current Contraception:Monog amous relationship Sexual complaints:No sexual complaints; No pain during intercourse; Normal libido Menopausal Symptoms:No menopausal symptoms;Inadequacy of lubrication of vaginal mucosa Psychological symptoms:No depression; No anxiety; No PMDD Preventive measures:Encourage self breast examination; Encourage regular exercise; Encourage no tobacco use; Encourage regular mammograms starting age 40; Needs to schedule mammogram; Up to date on colonoscopy screening Amarilis Gonzalez [facility] [address], [place], [address], [facility] 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 Post-MenopausalRepo rted bypatient.Menopausa l Symptoms:no menopausal symptoms; normal vaginal lubrication Vaginal Bleeding:history of menopause having occurred; no history of post menopausal bleeding Urinary Symptoms:no hematuria; no incontinence; no nocturia; no urinary frequency Vulva:no genital lesion; no vulvar atrophy Vagina:normal vaginal discharge; no vaginal atrophy Breast:no breast lump; no nipple discharge; no breast pain Sexual Complaints:no sexual complaints Psychological Symptoms:no depression; no anxiety Preventive Measures:encourage regular mammograms starting age 40; encourage self breast examination; encourage regular exercise; encourage no tobacco use; mammogram performed within the past year; history of recent colonoscopy Amarilis Gonzalez [facility] [address], [place], [address], [facility] 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 Post-MenopausalRepo rted bypatient.Menopausa l Symptoms:no menopausal symptoms; normal vaginal lubrication Vaginal Bleeding:history of menopause having occurred; no history of post menopausal bleeding Urinary Symptoms:no hematuria; no incontinence; no nocturia; no urinary frequency Vulva:no genital lesion; no vulvar atrophy Vagina:normal vaginal discharge; no vaginal atrophy Breast:no breast lump; no nipple discharge; no breast pain Sexual Complaints:no sexual complaints Psychological Symptoms:no depression; no anxiety Preventive Measures:encourage regular mammograms starting age 40; encourage self breast examination; encourage regular exercise; encourage no tobacco use; needs to schedule mammogram; history of recent colonoscopy Amarilis Gonzalez [facility] [address], [place], [address], [facility] 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 Post-MenopausalRepo rted bypatient.Menopausa l Symptoms:no menopausal symptoms; normal vaginal lubrication Vaginal Bleeding:history of menopause having occurred; no history of post menopausal bleeding Urinary Symptoms:no hematuria; no incontinence; no nocturia; no urinary frequency Vulva:no genital lesion; no vulvar atrophy Vagina:normal vaginal discharge; no vaginal atrophy Breast:no breast lump; no nipple discharge; no breast pain Sexual Complaints:no sexual complaints Psychological Symptoms:no depression; no anxiety Preventive Measures:encourage regular mammograms starting age 40; encourage self breast examination; encourage regular exercise; encourage no tobacco use; mammogram performed within the past year; history of recent colonoscopyNotes:59 yo wweh/o hyst for AUB, ovaries remainno h/o abnormal papsmammogram last olonoscopy UTD KRYSTA Castaneda [address], [place], [address], [facility] 03/12/2024 15:09:31 OBGyn Episode Ob Episode Information Episode Created Date Number of Fetuses Patient Bloodtype Patient rh Status Prepregnancy Weight lbs Domestic Partner Domestic Partner Phone Father Name Rehab Nurse Status 02/26/20 20 1 CLOSED Fetus Data First Name Last Name Admitted to NICU Weight (g) Sex Living Outcome Pediatric Complications Fetus ID Race Codes Race Delivery Type [id number] Vaginal Delivery Samuel Calculation Initial Samuel Date Initial Exam Date Initial Exam Provider Initial Ultrasound Date Last Menstrual Period Date Ultra Sound Weeks Gestation 0 Eighteen To Twenty Week Samuel Update Ultra Sound Date Fundal Height At Umbil Quickening Date Ultra Sound Latest Weeks Gestation Final Samuel Confirmed By Final Samuel Confirmed Date Final Samuel Date Ultra Sound Latest Days Gestation 0 0 Menstrual History Last Menstrual Date Menses Monthly On Bcp Conception Prior Menses Frequency Hcg Plus Date Menarche Onset Age Delivery Information Delivery Date Delivery Type Labor Anesthesia Weeks Gestation Incision Type Labor Labor Length Hrs Delivered By Post Complications Tubal Sterilization Discharge Date Comments 7 Discharge Information Feeding Method Contraceptive Method Maternal HG B and HCT Levels Ob Episode Information Episode Created Date Number of Fetuses Patient Bloodtype Patient rh Status Prepregnancy Weight lbs Domestic Partner Domestic Partner Phone Father Name Rehab Nurse Status 02/26/20 20 1 CLOSED Fetus Data First Name Last Name Admitted to NICU Weight (g) Sex Living Outcome Pediatric Complications Fetus ID Race Codes Race Delivery Type [id number] Vaginal Delivery Samuel Calculation Initial Samuel Date Initial Exam Date Initial Exam Provider Initial Ultrasound Date Last Menstrual Period Date Ultra Sound Weeks Gestation 0 Eighteen To Twenty Week Samuel Update Ultra Sound Date Fundal Height At Umbil Quickening Date Ultra Sound Latest Weeks Gestation Final Samuel Confirmed By Final Samuel Confirmed Date Final Samuel Date Ultra Sound Latest Days Gestation 0 0 Menstrual History Last Menstrual Date Menses Monthly On Bcp Conception Prior Menses Frequency Hcg Plus Date Menarche Onset Age Delivery Information Delivery Date Delivery Type Labor Anesthesia Weeks Gestation Incision Type Labor Labor Length Hrs Delivered By Post Complications Tubal Sterilization Discharge Date Comments 6 Discharge Information Feeding Method Contraceptive Method Maternal HG B and HCT Levels
--- OUTSIDE RECORDS SUMMARY | 2024-08-13 09:40 | XMS_ITS | Clinical Summary ---
Author Organization [facility] Address [address] [place] [address] Care Team Providers Care Corporate Security Officer Name Role Phone Zeb Sheffield MD Primary Care Provider [phone] Source Comments [facility],non-owned Affiliates and Associated Physician Practices is amultiple site organization consisting of ambulatory clinics and hospital sitesin [place], [place], [place] and [place]. This disclosure is being madepursuant to the Care Everywhere program and may not contain all information available regarding this patient. Last updated 18.[facility] Allergies No known active allergies Medications * Be aware that medications may not be up to date on this document. Alwaysverify current medications with the patient. oxybutynin CR 24hr (DITROPAN-XL) 10 MG tablet Take 10 mg by mouth 2 times daily Active levothyroxine (SYNTHROID) 100 MCG tablet Take 100 mcg by mouth daily before breakfast Active Vitamin D, Cholecalciferol , 1000 UNITS CAPS Active Vitamin A 89174 units Take 20,000 Units by mouth Active vitamin E (TOCOPHERYL) 400 UNIT tablet Take 800 Units by mouth once daily Active Vitamin K 100 MCG TABS Take 100 mcg by mouth once Active Iron-Vitamin C (VITRON-C) 65-125 MG TABS Activ e Active Problems Problem Noted Date Diagnosed Date S/P gastric bypass 05/11/2017 HTN (hypertension) Incontinence Morbid obesity Family History Medical History Relation Name Comments Hypertension Brother Cancer Mother Hypertension Mother CAD (Coronary Artery Disease) Sister Relation Name Status Comments Brother Mother Sister Social History Tobacco Use Types Packs/Day Years Used Date Smoking Tobacco: Never Smokeless Tobacco: Never Alcohol Use Standard Drinks/Week Comments No 0 (1 standard drink = 0.6 oz pur e alcohol) Comments No Sex and Gender Information Value Date Recorded Sex Assigned at Female 07/22/2021 9:25 AM CDT 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 Gender Identity Female 07/22/2021 9:25 AM CDT Sexual Orientation Straight 07/22/2021 9: 25 AM CDT Last Filed Vital Signs Vital Sign Reading Time Taken Comments Blood Pressure 120/80 07/29/2021 10:56 AM CDT Pulse 66 07/29/2021 10:56 AM CDT Temperature 36.9 C (98.4 F) 07/29/2021 10:56 AM CDT Respiratory Rate 20 07/29/2021 10:56 AM CDT Oxygen Saturation 99% 07/29/2021 10:56 AM CDT Inhaled Oxygen Concentration - - Weight 88.6 kg (195 lb 6.4 oz) 07/29/2021 10:56 AM CDT Height 149.9 cm (4' 11 ) 07/29/2021 10:56 AM CDT Body Mass Index 39.47 07/29/2021 10:56 AM CDT Plan of Treatment Health Maintenance Due Date Last Done Comments COLOGUARD (AGES 45-75) - COLON CA SCREENING 1966 COLON MONITORING 1966 COLONOSCOPY - COLON CA SCREENING 1966 CT COLONOGRAPHY - COLON CA SCREENING 1966 Colorectal Cancer Screening 1966 FIT - COLON CA SCREENING 1966 FLEX SIG - COLON CA SCREENING 1966 LIPID TESTING 1966 MAMMOGRAM 1966 PAP SMEAR 1966 HIV SCREENING 1981 HEPATITIS C SCREENING 02/17/1984 DTAP/TDAP/TD VACCINES (1 - Tdap) 1985 HEPATITIS B VACCINE (1 of 3 - 19+ 3-dose series) 1985 PNEUMOCOCCAL VACCINE 50+ (1 of 1 - PCV) 02/22/2016 ZOSTER VACCINE (1 of 2) 02/22/2016 COVID-19 VACCINE ( season) 2023 DEPRESSION SCREENING 04/18/2024 SCREENING FOR DIABETES 07/29/2024 2, 04/30/2020, 06/18/2019, Additional history exists INFLUENZA VACCINE (Season Ended) 2024 HIB VACCINE Aged Out No longer eligi ble based on patient's age to complete this topic HPV VACCINE Aged Out No longer eligi ble based on patient's age to complete this topic MENINGOCOCCAL (Group B) VACCINE SHARED DECISION-MAKING Aged Out No longer eligible based on patient's age to complete this topic MENINGOCOCCAL GROUPS A/C/Y/W VACCINE Aged Out No longer eligible based on patient's age to complete this topic Procedures Procedure Name Priority Date/Time Associated Diagnosis Comments COMPREHENSIVE METABOLIC PANEL Routine 07/29/2021 11:45 AM CDT Morbid obesity Bariatric surgery status Vitamin deficiency Vitamin D deficiency Postsurgical malabsorption from Last 3 Months or Most Recently Relevant to Health Maintenance Results * (ABNORMAL) COMPREHENSIVE METABOLIC PANEL (07/29/2021 11:45 AM CDT) Glucose 87 65 - 99 mg/dL [facility] ACCOUNT BILL BUN 16 6 - 24 mg/dL [facility] ACC[facility] B[facility] Creatinine 0.87 0.57 - 1.00 mg/dL [facility] ACCOUNT BILL eGFR by CKD-EPI 79 >59 mL/min/1.7 3 [facility] ACCOUNT BILL BUN/Creatinine Ratio 18 9 - 23 [facility] ACCOUNT BILL Sodium 140 134 - 144 mmol/L [facility] ACCOUNT [facility]ILL Potassium 4.2 3.5 - 5.2 mmol/L [facility] ACCOUNT BILL Chloride 105 96 - 106 mmol/L [facility] ACCOUNT BILL CO2 23 20 - 29 mmol/L [facility] ACCOUNT BILL Calcium 9.0 8.7 - 10.2 mg/dL [facility] ACCOUNT BILL Protein Total 5.9(L) 6.0 - 8.5 g/dL [facility] ACCOUNT BILL Albumin 4.0 3.8 - 4.9 g/dL [facility] ACCOUNT BILL Globulin Total 1.9 1.5 - 4.5 g/dL [facility] ACCOUNT BILL Albumin/Globulin Ratio 2.1 1.2 - 2.2 [facility] ACCOUNT BILL Bilirubin Total 0.2 0.0 - 1.2 mg/dL [facility] ACCOUNT BILL Alkaline Phosphatase 86 44 - 121 IU/L [facility] ACCOUNT BILL AST 16 0 - 40 IU/L [facility] ACCOUNT BILL ALT 13 0 - 32 IU/L [facility] ACCOUNT BILL Blood BLOOD SPECIMEN / Unknown 07/29/2021 11:45 AM CDT 07/29/2021 Narrative Resulting Agency Comment Lab Testing performed at: [facility] [address] [id number] Amarilis Polo NANOELECTRONICS ENGINEER-UTILITY BILL COLLECTION CLERK LAB - CHEMISTRY SADIE SERRANO Final Result [facility]ILL [address] [place] [address] from Last 3 Months or Most Recently Relevant to Health Maintenance Insurance [facility] Advance Directives * Full Code (Latest Code Status on File) Date Activated Date Inactivated Comments 05/11/2017 12:50 PM 05/13/2017 11:41 AM * Full Code Date Activated Date Inactivated Comments 03/12/2014 7:46 AM 03/12/2014 10:33 PM * Full Code Date Activated Date Inactivated Comments 03/11/2014 6:41 PM 03/12/2014 7:46 AM * FULL RESUSCITATION Date Activated Date Inactivated Comments 10/06/2011 12:44 PM 10/08/2011 12:01 AM Care Teams Corporate Security Officer Relationship Specialty Start Date End Date Zeb Sheffield MD [address] [address] PCP - General 05/14/11
== END 2024-08-13 09:03 | disposition home or self-care (01) ==
LOC: ANHIMG 09:09
PROVIDERS: PCP Family Medicine; Visit Provider Urology
DX: Z87.442 Personal history of urinary calculi (principal); K59.00 Constipation, unspecified
CPT/HCPCS: 74018

== ENCOUNTER 2024-10-31 14:31 | Outpatient (CLI) | payer OTHER, SELFPAY ==
--- NOTE | ~2024-10-31 | DEXA_ITS ---
Bone Density Report Name: RUDY VELA Age: 59 Sex: Female Ethnicity: White Date of : 1965 Indication: postmenopausal; screening for osteoporosis; hysterectomy; Referring Provider: MONIQUE, DIXIE Palumbo Study: Bone densitometry was performed. Exam Date: October 31, 2024 Accession number: [id number] Bone Density: Region BMD T-score Z-score Classification AP Spine(L1-L4) 0.839 -1.9 -0.6 Osteopenia Femoral Neck (Left) 0.715 -1.2 0.0 Osteopenia Total Hip (Left) 0.959 0.1 1.0 Normal Femoral Neck (Right) 0.667 -1.6 -0.4 Osteopenia Total Hip (Right) 0.914 -0.2 0.6 Normal Total Hip Mean 0.937 -0.1 0.8 Normal World Health Organization criteria for BMD impression classify patients as: Normal (T-score at or above -1.0), Osteopenia (T-score between -1.0 and -2.5), or Osteoporosis (T-score at or below -2.5). 10-year Fracture Risk(1): Major Osteoporotic Fracture 6.9% Hip Fracture 0.6% Reported Risk Factors: [place] (), Neck BMD=0.667, BMI=42.6 (1) FRAX(R) Version 3.08. Fracture probability calculated for an untreated patient. Fracture probability may be lower if the patient has received treatment. Clinical Information Provided by Patient: Has the following medical conditions: Hysterectomy Patient maximum height was 58.5 Menopause Age: 48 No regular weight bearing exercise Does not regularly consume dairy products Drinks caffeinated beverages Onset of menses at age 13 Number of children 2 Impression: The patient has low bone mass, based on the Total Spine T-score. The patient has an estimated ten-year risk of hip fracture of 0.6% and an estimated ten-year risk of major fracture of 6.9%, based on the WHO FRAX algorithm. Discussion: BONE DENSITY IS LOW AT ONE OR MORE SKELETAL SITES. This patient's lowest T-score is low at one or more skeletal sites. It meets the World Health Organization's (WHO) criteria for ?low bone mass? (T-score between -1.0 and -2.5). The patient's 10-year risk of fracture as calculated by FRAX is less than the threshold where pharmacological therapy is recommended by the National Osteoporosis Foundation (NOF). However, all treatment decisions require clinical judgment and consideration of individual patient factors, including patient preferences, comorbidities, previous drug use, risk factors not captured in the FRAX model (e.g., frailty, falls, vitamin D deficiency, increased bone turnover, interval significant decline in bone density) and possible under or overestimation of fracture risk by FRAX. The patient should follow a healthful lifestyle (good nutrition with adequate calcium and vitamin D, and appropriate weight-bearing exercise). Follow-Up: Consider repeating this study in 2 to 3 years to reassess this patient's status, or sooner if there is some new clinical indication. Reported by: VALENTINE on 10/31/2024 3:14:00 PM. Reviewed, dictated and finalized at location A.
== END 2024-10-31 14:32 | disposition home or self-care (01) ==
LOC: ANHIMG 14:36
PROVIDERS: PCP Family Medicine; Visit Provider Nurse Practitioner
DX: M81.0 Age-related osteoporosis without current pathological fracture (principal); M85.89 Other specified disorders of bone density and structure, multiple sites; Z13.820 Encounter for screening for osteoporosis; Z12.31 Encounter for screening mammogram for malignant neoplasm of breast
CPT/HCPCS: 77080

== ENCOUNTER 2024-11-07 07:49 | Emergency (ER) | payer OTHER, SELFPAY ==
[2024-11-07 07:55] VITALS: BP 162/88; PULSE 66; RESP 20; TEMP 36.7; O2SAT 99
--- NOTE | 2024-11-07 08:06 | PC.NURSE ---
EDP gave verbal order for tetracaine eye drop before initiating the [facility]
[2024-11-07] MEDS: TETRACAINE HCL 0.5% OPHTH SOLN 4 ML BTL 1 DROP (08:07)
--- NOTE | 2024-11-07 08:10 | ED.EYEPROB ---
HPI - Eye Problem General Chief complaint: Eye Problems Stated complaint: has dove body wash in the eye Time Seen by Provider: 11/07/24 08:10 Source: patient and family Mode of arrival: ambulatory Limitations: no limitations History of Present Illness HPI Narrative: PATIENT WAS TAKING A SHOWER AT 5:00 A.M., ACCIDENTALLY THIS SOAP DISPENSER DID ESCORT INTO RIGHT EYE. PATIENT TRIED TO IRRIGATE RIGHT EYE NUMEROUS OF TIME WITHOUT RELIEF OF PAIN. PATIENT DENIES OTHER INJURIES. Related Data Home Medications ?Medication ?Instructions ?Recorded ?Confirmed ?Last Taken ?Type oxybutynin chloride 10 mg 20 mg PO DAILY 09/22/23 05/02/24 Unknown History tablet,extended release 24 hr mecobalamin (vitamin B12) 1,000 1,000 mcg PO DAILY 03/22/24 05/02/24 Unknown History mcg chewable tablet Allergies Allergy/AdvReac Type Severity Reaction Status Date / Time No Known Allergies Allergy Verified 11/07/24 08:59 Review of Systems Review of Systems: All systems reviewed & are unremarkable except as noted in HPI and below PMFSH Past Medical History Medical History Overactive bladder Gram-negative bacteremia (~09/2023) History of hypertension Resolved after weight loss. Vitamin D deficiency History of kidney stones Hypothyroidism (acquired) Surgical History Surgical History History of endometrial ablation History of laparoscopic adjustable gastric banding With subsequent removal. History of tubal ligation History of cystoscopy (03/2017) Cystoscopy and left ureteroscopy. History of cholecystectomy (03/2011) History of hysterectomy (01/2014) History of gastric bypass (04/2017) Family History Family History Mother Patient's mother is , Onset Age: 34 Family history of malignant neoplasm of uterus Father COPD (chronic obstructive pulmonary disease) Social History Social History Social History: Surrogate medical decision maker: Destinee Lugo, daughter. Code status: Full code. Smoking status: Never smoker Second hand tobacco smoke exposure: Yes Alcohol intake: never Substance use: never Substance use type: does not use Do You Feel Safe in your Home?: Yes Lack of Transportation: No Lack of Food: Never True Current Housing: I Have Housing Concerned About Future Housing: No Difficulty Paying Gas/Electric Bills: No Difficulty Paying for Meds: No Currently Unemployed: No Education: Associate Degree Difficulty w/ Childcare or Family Care: No Living arrangements: with family Occupation/Education: occupation Spiritual care concerns: No Agree to blood products: Yes Exam Narrative: GENERAL APPEARANCE: WELL-DEVELOPED, WELL-NOURISHED SKIN: NORMAL COLOR HEAD: NORMOCEPHALIC, NONTRAUMATIC EYES: CONJUNCTIVAL INJECTION, TEARS ENT: OROPHARYNX NORMAL, EARS NORMAL, NOSE NORMAL NECK: SUPPLE, NONTENDER CHEST AND RESPIRATORY: AIRWAY PATENT, NO RESPIRATORY DISTRESS, NO ACCESSORY MUSCLE USE HEART: REGULAR RATE/RHYTHM ABDOMEN: SOFT, NONTENDER, NO ORGANOMEGALY, QUIET BOWEL SOUNDS VASCULAR: NORMAL PERIPHERAL PULSES, NORMAL CAPILLARY REFILL. MUSCULOSKELETAL: NORMAL RANGE OF MOTION, NONTENDER BACK NEUROLOGIC: ALERT AND ORIENTED ?3, CASHIER TUBE ROOM IS NORMAL TESTED, NO GROSS MOTOR DEFICIT Course Vital Signs Vital signs: Vital Signs Temperature 36.7 C 11/07/24 07:55 Pulse Rate 66 11/07/24 07:55 Respiratory Rate 20 11/07/24 07:55 Blood Pressure 162/88 H 11/07/24 07:55 Pulse Oximetry 99 11/07/24 07:55 Oxygen Delivery Room Air 11/07/24 07:55 Temperature 36.7 C 11/07/24 07:55 Pulse Rate 69 11/07/24 09:20 Respiratory Rate 19 11/07/24 09:20 Blood Pressure 138/77 11/07/24 09:20 Pulse Oximetry 98 11/07/24 09:20 Oxygen Delivery Room Air 11/07/24 07:55 MDM - Eye Problem MDM Narrative Medical decision making narrative: [facility] LENS IRRIGATION, PATIENT FEELS MUCH BETTER, ERYTHROMYCIN OINTMENT APPLIED PRIOR TO DISCHARGE. Differential Diagnosis Differential diagnosis: Likely other (CHEMICAL CONJUNCTIVITIS) Critical Care Time Critical Care Time Critical Care Time: No Discharge Plan Discharge Clinical Impression: Acute chemical conjunctivitis Patient Disposition: Home Condition: Improved Instructions: Conjunctivitis (ED) Additional Instructions: RETURN IF SYMPTOMS ARE WORSENING , CALL YOUR FAMILY PHYSICIAN FOR APPOINTMENT, TAKE TYLENOL NEEDED FOR ACHES AND PAIN, CONTINUE HOME MEDICATIONS. CONTINUE OF THYMIC ERYTHROMYCIN OINTMENT T.I.D. Patient Language: Moroccan Prescriptions: No Action fluticasone propionate [Flonase Allergy Relief] 50 mcg/actuation spray,suspension 2 spray NASAL DAILY 14 Days Qty: 15.8 0RF Rx Instructions: administer into each nostril dextromethorphan-guaifenesin [Mucinex DM] 60-1,200 mg tablet extended release 12 hr 1 tablet PO Q12H Qty: 12 0RF oxybutynin chloride 10 mg tablet extended release 24hr 20 mg PO DAILY mecobalamin (vitamin B12) 1,000 mcg tablet,chewable 1,000 mcg PO DAILY levothyroxine 112 mcg tablet See Rx Instructions .ROUTE .COMPLEX Qty: 90 1RF Dose Instruction: TAKE 1 TABLET BY MOUTH EVERY DAY Rx Instructions: TAKE 1 TABLET BY MOUTH EVERY DAY cholecalciferol (vitamin D3) 50 mcg (2,000 unit) tablet 50 mcg PO DAILY Qty: 90 2RF Follow-up/Referrals: Miryam Asencio MD [Primary Care Provider] -
--- NOTE | 2024-11-07 08:49 | PC.NURSE ---
NS given through [facility]. verbal order given by EDP
[2024-11-07 09:20] VITALS: BP 138/77; PULSE 69; RESP 19; O2SAT 98
[2024-11-07] MEDS: ERYTHROMYCIN OPHTH OINTMENT 1 GM TUBE 1 APPLIC RIGHT EYE (10:50)
== END 2024-11-07 11:07 | disposition home or self-care (01) ==
PROVIDERS: Emergency Provider Emergency Medicine; PCP Family Medicine
DX: T55.0X1A Toxic effect of soaps, accidental (unintentional), initial encounter (principal); H10.211 Acute toxic conjunctivitis, right eye; E55.9 Vitamin D deficiency, unspecified; E03.9 Hypothyroidism, unspecified; N32.81 Overactive bladder; Z98.84 Bariatric surgery status; Z90.49 Acquired absence of other specified parts of digestive tract; Z90.710 Acquired absence of both cervix and uterus; Z87.442 Personal history of urinary calculi; Z77.22 Contact with and (suspected) exposure to environmental tobacco smoke (acute) (chronic)
CPT/HCPCS: 99283; A9270; J7030